=== PATIENT | female | born 1950 | race Caucasian/White ===

== ENCOUNTER → 2023-10-21 13:46 | Outpatient (REF) | payer MEDICARE, BC, SELFPAY ==
[2023-10-21 14:31] LABS: ALT (SGPT) 25 U/L (0-35); AST (SGOT) 22 U/L (14-36); Alkaline Phosphatase 76 U/L (38-126); Blood Urea Nitrogen 17 mg/dl (7-17); Calcium 9.4 mg/dl (8.4-10.2); Carbon Dioxide 28 mmol/L (22-30); Chloride 106 mmol/L (98-107); Glucose 142 mg/dl (70-99); HDL Cholesterol 82 mg/dl; LDL Cholesterol, Calculated 69 mg/dl; Sodium 139 mmol/L (135-145); Total Bilirubin 0.5 mg/dl (0.2-1.3); Total Cholesterol 168 mg/dl (50-199); Total Protein 6.4 g/dl (6.3-8.2); Triglyceride 86 mg/dl (10-149); Very Low Density Lipoprotein 17 mg/dl (0-30); eGFR > 60.00
== END ==
LOC: REG 13:46
PROVIDERS: ATTENDING PHYSICIAN Family Medicine
DX: E11.69 Type 2 diabetes mellitus with other specified complication (principal); I10 Essential (primary) hypertension
CPT/HCPCS: 36415; 80053; 80061; 83036

== ENCOUNTER → 2023-12-16 12:18 | Outpatient (REF) | payer MEDICARE, BC, SELFPAY ==
[2023-12-16 14:09] LABS: % Basophils 0.2 % (0-2); % Eosinophils 0.6 % (0-6); % Immature Granulocytes 0.2 % (0-0.5); % Lymphocytes 27.2 % (20.5-51.1); % Neutrophils 64.8 % (42.2-75.2); Absolute Lymphocytes 1.3 10^3/uL (1.2-3.4); Absolute Monocytes 0.3 10^3/uL (0.1-0.6); Absolute Neutrophils 3.1 10^3/uL (1.4-6.5); Hematocrit 43.1 % (37.0-47.0); Hemoglobin 14.5 g/dL (12.0-16.0); Mean Corp Hgb Conc. 33.6 g/dL (33.0-37.0); Mean Corpuscular Hgb 31.9 pg (27.0-31.0); Mean Corpuscular Volume 94.9 fL (81.0-99.0); Mean Platelet Volume 9.6 fL (7.4-10.4); Nucleated Red Blood Cells % 0 %; Platelet Count 210 10^3/uL (130-400); Red Blood Cell Count 4.54 10^6/uL (4.20-5.40); Red Cell Dist. Width 13.2 % (11.5-14.5); White Blood Cell Count 4.9 10^3/uL (4.8-10.8)
[2023-12-16 14:25] LABS: Glycohemoglobin (HgbA1c) 7.9 % (4.0-5.6)
[2023-12-16 14:29] LABS: ALT (SGPT) 33 U/L (0-35); AST (SGOT) 29 U/L (14-36); Albumin 4.3 g/dl (3.5-5.0); Alkaline Phosphatase 81 U/L (38-126); Blood Urea Nitrogen 24 mg/dl (7-17); Calcium 9.5 mg/dl (8.4-10.2); Carbon Dioxide 26 mmol/L (22-30); Chloride 104 mmol/L (98-107); Glucose 172 mg/dl (70-99); HDL Cholesterol 93 mg/dl; LDL Cholesterol, Calculated 83 mg/dl; Potassium 3.8 mmol/L (3.5-5.1); Sodium 138 mmol/L (135-145); Total Bilirubin 0.4 mg/dl (0.2-1.3); Total Cholesterol 200 mg/dl (50-199); Total Protein 6.8 g/dl (6.3-8.2); Triglyceride 123 mg/dl (10-149); Very Low Density Lipoprotein 24 mg/dl (0-30); eGFR > 60.00
[2023-12-16 14:57] LABS: TSH Reflex To Free T4 2.55 uIU/ml (0.47-4.68)
== END ==
LOC: REG 12:18
PROVIDERS: ATTENDING PHYSICIAN Family Medicine
DX: E11.69 Type 2 diabetes mellitus with other specified complication (principal); E78.00 Pure hypercholesterolemia, unspecified; Z13.29 Encounter for screening for other suspected endocrine disorder; R53.83 Other fatigue
CPT/HCPCS: 36415; 80053; 80061; 83036; 84443; 85025

== ENCOUNTER 2024-02-04 07:23 | Emergency (ER) | payer MEDICARE, BC, SELFPAY ==
[2024-02-04 07:26] VITALS: BP 152/75
--- NOTE | 2024-02-04 10:22 | ED.GENMED ---
History of Present Illness
General
Chief Complaint: Musculo-Skeletal Complaint
Source: patient
Time Seen by Provider: 02/04/24 07:33
Travel History
Have you had any contact with someone who has COVID-19?: No
Do you have any symptoms of coronavirus? Fever > 100 degrees, chills, cough, shortness of breath, sore throat, loss of taste or smell, muscle aches, or headache?: No
History of Present Illness
History of Present Illness:
73-year-old female presents with 1 week of left arm pain. Patient states that she is not sure if she injured it but thinks maybe she bumped her arm in the middle of the night. She states that she takes antipsychotics and sometimes she does not
recall. She states that it hurts in the similar site to when she broke it in the past. The patient admits that it started 1 week ago and has been constant. Denies chest pain or shortness of breath. No palpitations. No neck pain. No radiation
down into the forearm. The pain is at the distal one third of her humerus region.
Past History
Past History
ED Past Medical History: Hypercholesterolemia, NIDDM, Psychiatric (Bipolar), Other (left arm michael and screws 2008 and then again 2009 with bone growth stimulator) and Other (L renal art. aneurism, bipolar)
ED Past Surgical History: Orthopedic
Patient has exhibited threatening behavior?: No
Social History
Tobacco: Non-smoker
Alcohol: Chronic alcoholic (states she quit ETOH 03/2016)
Drug: None
Personal:
Living: alone
Employment: Disabled
Family History
Family History: Hypertension
Phy Exam
Physical Exam
Physical Exam:
CONSTITUTIONAL Vital signs reviewed, Patient alert and oriented to person, place and time. Well-appearing
HEAD atraumatic, normocephalic.
EYES eyelids normal to inspection, Extraocular muscles intact, Conjunctiva normal, Sclera normal.
NECK normal range of motion, Trachea midline, no jugular venous distention.
RESP no respiratory distress
BACK No obvious deformities
UPPER EXTREMITY Gross Range of motion normal, gross motor strength normal. Mild tenderness at the distal humerus on the left.
LOWER EXTREMITY Gross range of motion normal, Gross motor strength normal
NEURO Speech normal, No focal motor deficits include, Burton coma scale 15, Memory normal, Cranial Nerves intact to screening exam.
SKIN Skin warm, dry, and normal in color.
PSYCHIATRIC Patient oriented to person place and time, Normal affect.
Course
Orders/Labs/Results
Orders:
Orders
02/04/24 07:56
Humerus, Left 2 Views [CR Humerus - Left Min 2 Views*] Urgent
Comment:
Reason For Exam: pain, possible injury
02/04/24 10:23
Electrocardiogram (*1) Urgent
Reason for Study: Other
Other Reason for Exam: LUE pain
EKG- Treatment ONCE
Vital Signs
Initial and Last Documented VS:
Initial Vital Signs
Temp Pulse Resp BP Pulse Ox
98.0 F 89 16 152/75 96
02/04/24 07:26 02/04/24 07:26 02/04/24 07:26 02/04/24 07:26 02/04/24 07:26
Last Documented Vital Signs
Temp Pulse Resp BP Pulse Ox
98.0 F 89 16 152/75 96
02/04/24 07:26 02/04/24 07:26 02/04/24 07:26 02/04/24 07:26 02/04/24 07:26
MDM/Problems Addressed
MDM/Problems Addressed:
Arm pain
*Radiology
Radiology exam reviewed: all reviewed NAD by ED Provider
*Pulse Oximetry
Patient hypoxic: no
*EKG
Interpreted by ED Provider?: Yes
Interpretation: normal
Rate: normal
Rhythm: sinus
Dorado: normal axis
QRS Pattern: normal QRS
Ischemia: no ischemia
*Critical Care Note
Total Time (30-74mins, 75-104mins- exclusive of procedures): Not Applicable
Data Reviewed
Source: patient
Further Testing Considered But Not Given:
Consider troponin patient states that hurts with movement. Check EKG
Patient Management
Escalation/DeEscalation of care consider admission/obs:
Patient stable for outpatient follow-up. Await EKG. If negative okay for discharge
ED Attending Note
-
Portions of this chart may have been created with voice recognition software.� Occasional wrong word or��sound alike� substitutions may have occurred due to the inherent limitations of voice recognition software.
Discharge Plan
Departure
Patient Disposition: Home (Routine Discharge)
Date of Disposition: 02/04/24
Time of Disposition: 10:22
Patient with high blood pressure during this ER visit?: Yes
Discharge Problem:
Arm pain
Instructions: Contusion (DC)
Prescriptions:
No Action
atorvastatin 40 MG tablet
40 mg PO DAILY
divalproex 250 MG tablet,delayed release (DR/EC)
750 mg PO HS
metoprolol succinate 100 MG tablet extended release 24 hr
100 mg PO DAILY
risperidone 2 MG tablet
4 mg PO HS
calcium carbonate 600 MG tablet
600 mg PO DAILY
sertraline 50 MG tablet
50 mg PO DAILY
melatonin 5 MG tablet
5 mg PO HS
multivitamin with folic acid [Tab-A-Mary] 1 TABLET tablet
1 tab PO DAILY
oxycodone 5 MG tablet
5 mg PO Q4HPRN PRN (Reason: PAIN) Qty: 10 0RF
clonazepam 0.5 MG tablet
0.25 mg PO HS Qty: 7 0RF
thiamine HCl (vitamin B1) 100 MG tablet
100 mg PO DAILY Qty: 30 0RF
metformin 500 MG tablet
500 mg PO BID Qty: 60 0RF
Rx Instructions:
1/2 hr before meals
molnupiravir 200 mg capsule
800 mg PO Q12H 5 Days Qty: 40 0RF
Referrals:
Ricardo Washington Jr., DO [Family Provider] -
Activity Restrictions/Additional Instructions:
Please ice your injury and see your doctor in the next 1 week for follow-up and reevaluation. Return admitted for chest pain, shortness of breath, palpitations, weakness of any kind or any other concerns
Interventions
Interventions:
*Risk Screen - Suicide Last Done: 02/04/24 08:11
*General Assessment Last Done: 02/04/24 08:11
*ED COVID-19 Vaccine History Last Done: 02/04/24 07:26
ED-Musculoskeletal Assessment Last Done: 02/04/24 09:10
Discharge Date and Time
Print Language: MAORI
== END 2024-02-04 10:51 | disposition home or self-care (01) ==
LOC: EMR 07:23
PROVIDERS: EMERGENCY PHYSICIAN Emergency Medicine; FAMILY PHYSICIAN Family Medicine
DX: M79.602 Pain in left arm (principal); E11.9 Type 2 diabetes mellitus without complications; Z79.84 Long term (current) use of oral hypoglycemic drugs; E78.00 Pure hypercholesterolemia, unspecified
CPT/HCPCS: 99283; 73060; 93005

== ENCOUNTER 2024-02-04 16:40 | Emergency (ER) | payer SELFPAY ==
[2024-02-04 17:05] VITALS: BP 149/73
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
[2024-02-04] MEDS: TYLENOL 1000 MG PO (18:44)
== END 2024-02-04 20:47 | disposition home or self-care (01) ==
LOC: EMR 16:40
PROVIDERS: EMERGENCY PHYSICIAN Emergency Medicine; FAMILY PHYSICIAN Family Medicine
DX: S42.91XA Fracture of right shoulder girdle, part unspecified, initial encounter for closed fracture (principal); V43.52XA Car driver injured in collision with other type car in traffic accident, initial encounter; Y92.410 Unspecified street and highway as the place of occurrence of the external cause; R07.89 Other chest pain; M25.511 Pain in right shoulder
CPT/HCPCS: 99284; 73030; 93005

== ENCOUNTER → 2024-02-12 14:24 | Outpatient (REF) | payer MEDICARE, BC, SELFPAY | LOC: HWRAD 14:24 | PROVIDERS: ATTENDING PHYSICIAN Physician Assistant; FAMILY PHYSICIAN Family Medicine | DX: S42.291A Other displaced fracture of upper end of right humerus, initial encounter for closed fracture (principal) | CPT/HCPCS: 73200 ==

== ENCOUNTER → 2024-02-16 11:10 | Outpatient (REF) | payer MEDICARE, BC, SELFPAY | LOC: HWCARD 11:10 | PROVIDERS: ATTENDING PHYSICIAN Orthopaedic Surgery Hand Surgery; FAMILY PHYSICIAN Family Medicine | DX: Z01.818 Encounter for other preprocedural examination (principal) | CPT/HCPCS: 93005 ==

== ENCOUNTER 2024-02-17 06:03 | Inpatient (IN) | payer OTHER, MEDICARE, BC, SELFPAY ==
--- NOTE | 2024-02-15 16:34 | PTCARENOTE ---
Abn HgA1c, Christian at MD office made aware.
--- NOTE | 2024-02-16 14:23 | CM ---
Attempted to call patient but went to voicemail. COuld not leave message as voice mail full. SPoke to sister in law who said she and her are reaching out to patient to get her to return call to [facility].
[2024-02-17] VITALS (18 sets, daily range): BP systolic 113–159; BP diastolic 52–87; PULSE 86–96; O2SAT 94–96; BMI 22.3
[2024-02-17 07:00] LABS: Glucose - Point of Care 214 mg/dl (70-99)
[2024-02-17] MEDS: CELEBREX 200 MG PO (07:22)
[2024-02-17] MEDS: TYLENOL 1000 MG PO (07:22)
[2024-02-17] MEDS: BACTROBAN NASAL 1 GRAM NASAL (07:22)
[2024-02-17] MEDS: NORMOSOL-R 1000 IV ×2 (07:23→11:30)
--- NOTE | 2024-02-17 10:00 | SUR.PHASEI ---
Received report from Bob Lisa RN and assumed care of pt
[2024-02-17 10:09] LABS: Glucose - Point of Care 238 mg/dl (70-99)
[2024-02-17] MEDS: NOVOLOG vial 1 UNITS SC (10:45)
[2024-02-17] MEDS: LANTUS 0.0800000000000000017 UNITS SC (10:49)
[2024-02-17 12:28] LABS: Glucose - Point of Care 223 mg/dl (70-99)
--- NOTE | 2024-02-17 12:42 | CM ---
Patient arrived on floor. Request for CM consult for discharge planning and possible HH/VN. Will await therapy recommendations.
--- NOTE | 2024-02-17 12:50 | PTCARENOTE ---
1225: Patient arrived to 2S. Full head to toe assessment completed. R upper extremity neurovascular assessment completed. R arm on sling. IVF running per order. Call pro within reach and bed in lowest position.
[2024-02-17] MEDS: TORADOL IV (13:07)
[2024-02-17] MEDS: ZOLOFT 50 MG PO (13:09)
[2024-02-17] MEDS: TYLENOL 650 MG PO ×3 (13:09→21:20)
[2024-02-17] MEDS: NOVOLOG FLEXPEN-MODERATE RESISTANCE 3 UNITS SC (13:22)
[2024-02-17] MEDS: ACTOS 45 MG PO (13:23)
--- NOTE | 2024-02-17 14:48 | CM ---
Patient is scheduled for an elective R Reverse TSA on 02/17/24. UNable to speak to patient prior to surgery. MEt in room today. Introduced role of Orthopedic Navigator. Patient reports that she lives alone in a two story home with 3 steps to enter.
Set up on first floor with full bathroom with tub. She was functioning independently but had friends helping give her rides and making food.
She is right dominant. She has been using a sling but was using both hands to open cat food. SHe has tub seat and grab bar by tub. SHe has comfort height toilet seats.
PCP is Dr. Shannan Fisher
Discussed orthopedic program and post surgical plans. Reviewed anticipated length of stay. Patient feels she will need snf rehab as she does not have anyone to come stay with her. Will await OT evaluation to see who she functions. will ask for PT
eval for SNF needs.
Plan: Orthopedic Navigator will be involved in the care of patient.
[2024-02-17] MEDS: ANCEF 5 IV (16:11)
[2024-02-17 16:58] LABS: Glucose - Point of Care 295 mg/dl (70-99)
[2024-02-17] MEDS: NOVOLOG FLEXPEN-MODERATE RESISTANCE 5 UNITS SC (17:25)
[2024-02-17] MEDS: ASPIRIN 325 MG PO (17:26)
[2024-02-17 21:12] LABS: Glucose - Point of Care 281 mg/dl (70-99)
[2024-02-17] MEDS: RISPERDAL 2 MG PO (21:20)
[2024-02-17] MEDS: COLACE 100 MG PO (21:20)
[2024-02-17] MEDS: LIPITOR 40 MG PO (21:20)
[2024-02-17] MEDS: DEPAKOTE ER (24 HR RELEASE) 750 MG PO (21:20)
[2024-02-17] MEDS: SENOKOT 17.1999999999999993 MG PO (21:20)
[2024-02-17] MEDS: RISPERDAL 0.5 MG PO (21:20)
[2024-02-17] MEDS: TORADOL 15 MG IV (21:21)
[2024-02-17] MEDS: TOPROL XL 25 MG PO (21:21)
[2024-02-17] MEDS: BACTROBAN 2% OINTMENT 1 APPLIC NASAL (21:21)
[2024-02-17] MEDS: DESYREL 25 MG PO (21:23)
[2024-02-18] VITALS (7 sets, daily range): BP systolic 96–146; BP diastolic 44–58; PULSE 79–81; O2SAT 100
[2024-02-18] MEDS: ANCEF 5 IV (00:28)
[2024-02-18] MEDS: TYLENOL PO (00:42)
[2024-02-18] MEDS: TYLENOL 650 MG PO ×5 (03:53→19:52)
[2024-02-18 07:16] LABS: Glucose - Point of Care 186 mg/dl (70-99)
--- NOTE | 2024-02-18 07:19 | W.PN.ORTHO ---
Today's Communication / Plan
-
PT/OT
Nonweightbearing right upper extremity
Aspirin for DVT prophylactics
group home facility when bed available
Assessment
.
Distal Motor Intact: Yes
Dressing:
Clean, dry and intact.
Plan
.
Surgery / Date: R reverse TSA 02/16 Ritting
DVT Prophylaxis: Aspirin
Activity:
Out of bed.
PT/OT
Discharge Plan: SNF
Subjective
.
.:
Patient resting comfortably.
Vital Signs and Labs
.
Vital Signs and Labs:
Temp Pulse Resp BP Pulse Ox
98.5 F 91 18 121/58 97
02/18/24 03:25 02/18/24 03:25 02/18/24 03:25 02/18/24 03:25 02/18/24 03:25
Non-invasive Hgb result: 10.1
[2024-02-18] MEDS: NOVOLOG FLEXPEN-MODERATE RESISTANCE 1 UNITS SC ×2 (08:09→12:45)
[2024-02-18] MEDS: SENOKOT 17.1999999999999993 MG PO ×2 (08:10→19:52)
[2024-02-18] MEDS: ACTOS 45 MG PO (08:10)
[2024-02-18] MEDS: COLACE 100 MG PO ×2 (08:10→19:52)
[2024-02-18] MEDS: LANTUS 0.0800000000000000017 UNITS SC (08:10)
[2024-02-18] MEDS: ASPIRIN 325 MG PO (08:10)
[2024-02-18] MEDS: ZOLOFT 50 MG PO (08:10)
[2024-02-18] MEDS: TORADOL 15 MG IV (08:11)
[2024-02-18] MEDS: BACTROBAN 2% OINTMENT 1 APPLIC NASAL ×2 (08:12→19:52)
--- NOTE | 2024-02-18 10:03 | W.PN.ORTHO ---
Today's Communication / Plan
-
d/c when stable
Assessment
.
Distal Motor Intact: Yes
Dressing:
Clean, dry and intact.
Assessment:
Hypotension--Midrdrine + IVF
DM-sugars stable today
Plan
.
Surgery / Date: Prox humerus Fx-R reverse TSA 02/16 Ritting
DVT Prophylaxis: Aspirin
Activity:
Out of bed.
PT/OT
Discharge Plan: SNF
Subjective
.
.:
Patient resting comfortably.
Vital Signs and Labs
.
Vital Signs and Labs:
Temp Pulse Resp BP Pulse Ox
97.5 F 78 18 96/52 94
02/18/24 07:10 02/18/24 07:10 02/18/24 07:10 02/18/24 07:10 02/18/24 07:10
Non-invasive Hgb result: 10.1
Physical Exam
-
HEENT: No pallor, cyanosis, or jaundice. Throat clear.
NECK: Supple. No JVD.
RESPIRATORY: Lungs clear to auscultation.
CVS: S1, S2 normal. RRR.� No murmur, rub or gallop.
ABDOMEN: Soft, non-tender. No distension. BS+/normal.
EXTREMITIES: strength equal, no calf pain with palpation
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 No focal deficits. 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
--- NOTE | 2024-02-18 10:13 | W.DS.TRANS ---
DC Summary - Medical Authorization Specialist
-
Discharge Instructions:
Sleep Apnea Risk Intermediate
Discharge Diagnosis/Procedures R proximal humerus fx-s/p R reverse TSA
Ritting 02/17/24
Diet Diabetic, Carb Controlled
Activity No strenuous activity
Additional Activity NWB w/ sling RUE
Driving Restrictions No driving
Instructions:
Stand-Alone Forms: Total Shoulder Replacement D/C
Changes to Home Medications: Yes
Discharge Medications:
DC Medications w/original date entered in [facility]
atorvastatin 40 mg tablet 40 mg PO HS 05/01/16
sertraline 50 mg tablet 50 mg PO DAILY 05/01/16
metoprolol succinate 50 mg capsule sprinkle, ext. release 24 hr 50 mg PO HS 02/16/24
pioglitazone 45 mg tablet 45 mg PO DAILY 02/16/24
risperidone 0.5 mg tablet (Risperdal) 0.5 mg PO HS 02/16/24
risperidone 2 mg tablet (Risperdal) 2 mg PO HS 02/16/24
semaglutide 14 mg tablet (Rybelsus) 14 mg PO DAILY 02/16/24
trazodone 50 mg tablet 25 mg PO HS PRN insomnia 02/16/24
divalproex 250 mg tablet,extended release 24 hr (Depakote ER) 750 mg PO HS Mental Health/Anxiety 02/17/24
Saccharomyces boulardii 250 mg capsule (Florastor) 250 mg PO BID #1 cap 02/18/24
acetaminophen 500 mg tablet 1,000 mg (2 x 500 mg) PO QID #0 tabs 02/18/24
aspirin 325 mg tablet 325 mg PO DAILY blood clot prevention #1 tab 02/18/24
docusate sodium 100 mg capsule (Colace) 100 mg PO BID stool softner #1 cap 02/18/24
doxycycline hyclate 100 mg capsule 100 mg PO BID infection prevention #10 caps 02/18/24
famotidine 20 mg tablet 20 mg PO HS GI prophylaxis #30 tabs 02/18/24
gabapentin 300 mg capsule 300 mg PO HS sleep/pain #10 caps 02/18/24
magnesium hydroxide 400 mg/5 mL oral suspension (Milk of Magnesia) 30 ml PO HS PRN Constipation #1 mL 02/18/24
meloxicam 15 mg tablet 15 mg PO DAILY anti-inflammatory #14 tabs 02/18/24
oxycodone 5 mg tablet 5 mg PO Q6H PRN 1 tab moderate pain, 2 tabs severe pain #30 tabs 02/18/24
sennosides 8.6 mg tablet (Senokot) 17.2 mg (2 x 8.6 mg) PO BID laxative #2 tabs 02/18/24
Home Medication Changes
doxycycline hyclate 100 mg capsule 100 mg PO BID infection prevention #10 caps 02/18/24
famotidine 20 mg tablet 20 mg PO HS GI prophylaxis #30 tabs 02/18/24
gabapentin 300 mg capsule 300 mg PO HS sleep/pain #10 caps 02/18/24
meloxicam 15 mg tablet 15 mg PO DAILY anti-inflammatory #14 tabs 02/18/24
oxycodone 5 mg tablet 5 mg PO Q6H PRN 1 tab moderate pain, 2 tabs severe pain #30 tabs 02/18/24
Pending Results: No
[2024-02-18] MEDS: ProAmatine 5 MG PO ×3 (10:20→17:27)
[2024-02-18] MEDS: NSS 250 IV (10:20)
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
[2024-02-18 12:16] LABS: Glucose - Point of Care 192 mg/dl (70-99)
[2024-02-18] MEDS: ROXICODONE 10 MG PO (16:01)
[2024-02-18 16:25] LABS: Glucose - Point of Care 255 mg/dl (70-99)
[2024-02-18] MEDS: NOVOLOG FLEXPEN-MODERATE RESISTANCE 5 UNITS SC (17:24)
[2024-02-18 21:35] LABS: Glucose - Point of Care 201 mg/dl (70-99)
[2024-02-18] MEDS: ZOFRAN 4 MG IV (22:02)
[2024-02-18] MEDS: DEPAKOTE ER (24 HR RELEASE) 750 MG PO (22:07)
[2024-02-18] MEDS: DESYREL 25 MG PO (22:07)
[2024-02-18] MEDS: RISPERDAL 0.5 MG PO (22:07)
[2024-02-18] MEDS: LIPITOR 40 MG PO (22:07)
[2024-02-18] MEDS: RISPERDAL 2 MG PO (22:07)
[2024-02-18] MEDS: TOPROL XL 25 MG PO (22:08)
[2024-02-19] MEDS: TYLENOL PO (01:00)
[2024-02-19] MEDS: TYLENOL 650 MG PO ×5 (03:36→19:37)
[2024-02-19 07:46] LABS: Glucose - Point of Care 186 mg/dl (70-99)
[2024-02-19 07:48] VITALS: BP 117/56
[2024-02-19] MEDS: ASPIRIN 325 MG PO (08:35)
[2024-02-19] MEDS: ZOLOFT 50 MG PO (08:35)
[2024-02-19] MEDS: ACTOS 45 MG PO (08:35)
[2024-02-19] MEDS: SENOKOT 17.1999999999999993 MG PO ×2 (08:35→19:37)
[2024-02-19] MEDS: ProAmatine 5 MG PO ×3 (08:35→17:36)
[2024-02-19] MEDS: NOVOLOG FLEXPEN-MODERATE RESISTANCE 1 UNITS SC ×2 (08:36→17:36)
[2024-02-19] MEDS: LANTUS 0.0800000000000000017 UNITS SC (08:36)
[2024-02-19] MEDS: COLACE 100 MG PO ×2 (08:36→19:37)
--- NOTE | 2024-02-19 10:53 | W.PN.ORTHO ---
Today's Communication / Plan
-
D/C when stable
Assessment
.
Distal Motor Intact: Yes
Dressing:
Clean, dry and intact.
Assessment:
Hypotension--Midrdrine + IVF-RESOLVED
DM-sugars stable
Plan
.
Surgery / Date: Prox humerus Fx-R reverse TSA 02/16 Ritting
DVT Prophylaxis: Aspirin
Activity:
Out of bed.
PT/OT
Discharge Plan: SNF
Subjective
.
.:
Patient resting comfortably.
Vital Signs and Labs
.
Vital Signs and Labs:
Temp Pulse Resp BP Pulse Ox
98.4 F 80 16 117/56 94
02/19/24 07:48 02/19/24 07:48 02/19/24 07:48 02/19/24 08:35 02/19/24 07:48
Non-invasive Hgb result: 10.6
Physical Exam
-
HEENT: No pallor, cyanosis, or jaundice. Throat clear.
NECK: Supple. No JVD.
RESPIRATORY: Lungs clear to auscultation.
CVS: S1, S2 normal. RRR.� No murmur, rub or gallop.
ABDOMEN: Soft, non-tender. No distension. BS+/normal.
EXTREMITIES: strength equal, no calf pain with palpation
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 No focal deficits. senior architect grossly intact
[2024-02-19 11:46] LABS: Glucose - Point of Care 277 mg/dl (70-99)
[2024-02-19] MEDS: NOVOLOG FLEXPEN-MODERATE RESISTANCE 5 UNITS SC (12:06)
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
[2024-02-19 15:30] VITALS: BP 117/66; PULSE 87
[2024-02-19 15:37] VITALS: BP 117/66
[2024-02-19 16:45] VITALS: BP 132/65; PULSE 93; O2SAT 96
[2024-02-19 16:47] LABS: Glucose - Point of Care 178 mg/dl (70-99)
[2024-02-19] MEDS: MILK OF MAGNESIA 30 ML PO (19:41)
[2024-02-19] MEDS: LIPITOR 40 MG PO (21:27)
[2024-02-19] MEDS: RISPERDAL 0.5 MG PO (21:27)
[2024-02-19] MEDS: DEPAKOTE ER (24 HR RELEASE) 750 MG PO (21:27)
[2024-02-19] MEDS: DESYREL 25 MG PO (21:28)
[2024-02-19] MEDS: RISPERDAL 2 MG PO (21:28)
[2024-02-19] MEDS: TOPROL XL 25 MG PO (21:29)
[2024-02-19 21:30] LABS: Glucose - Point of Care 251 mg/dl (70-99)
[2024-02-19 23:14] VITALS: BP 142/61
[2024-02-20] MEDS: TYLENOL PO ×2 (01:04→04:58)
[2024-02-20 08:03] LABS: Glucose - Point of Care 185 mg/dl (70-99)
--- NOTE | 2024-02-20 08:14 | W.PN.UPDATE ---
Update Note
Progress Note Update
Ms. Ferrara is POD3 following her right reverse shoulder replacement for proximal humerus fracture performed by Dr. Magallon. She is resting comfortably in bed this morning, and reports any pain in her shoulder is well controlled at present. She is
scheduled for dc to [facility] this afternoon.
Surgical dressing clean, dry and intact. Expected post-operative edema and ecchymosis. Patient able to wiggle fingers, flex and extend wrist. Sensation intact to light touch distally. Capillary refill <2 seconds.
We will see patient back at 2 weeks post-op. Dc orders in.
[2024-02-20 08:17] VITALS: BP 133/73
[2024-02-20] MEDS: NOVOLOG FLEXPEN-MODERATE RESISTANCE 1 UNITS SC (08:27)
[2024-02-20] MEDS: LANTUS 0.0800000000000000017 UNITS SC (08:28)
[2024-02-20] MEDS: ACTOS 45 MG PO (08:28)
[2024-02-20] MEDS: SENOKOT 17.1999999999999993 MG PO (08:28)
[2024-02-20] MEDS: ProAmatine PO (08:29)
[2024-02-20] MEDS: TYLENOL 650 MG PO ×2 (08:29→12:22)
[2024-02-20] MEDS: ASPIRIN 325 MG PO (08:29)
[2024-02-20] MEDS: COLACE 100 MG PO (08:29)
[2024-02-20] MEDS: ZOLOFT 50 MG PO (08:29)
[2024-02-20 09:40] VITALS: BP 126/66
[2024-02-20 12:17] LABS: Glucose - Point of Care 287 mg/dl (70-99)
[2024-02-20 12:22] VITALS: BP 127/72
[2024-02-20] MEDS: NOVOLOG FLEXPEN-MODERATE RESISTANCE 5 UNITS SC (12:22)
[2024-02-20] MEDS: ProAmatine 5 MG PO (12:23)
--- NOTE | 2024-02-20 12:59 | CM ---
Patient has been medically cleared for discharge to [facility]. Transport scheduled for 2:00PM.
== END 2024-02-20 12:47 | DRG 483 ==
LOC: 2 SOUTH 06:03
PROVIDERS: ADMITTING PHYSICIAN Orthopaedic Surgery Hand Surgery
PROC: 0RRJ0JZ Replacement of Right Shoulder Joint with Synthetic Substitute, Open Approach (ICD-10-PCS; 2024-02-17)
DX: S42.201A Unspecified fracture of upper end of right humerus, initial encounter for closed fracture (principal); I95.81 Postprocedural hypotension; E11.9 Type 2 diabetes mellitus without complications
CPT/HCPCS: 73020; 82962; 87070; 93005; 97110; 97116; 97162; 97166; 97530; 97535; C1713; C1776

== ENCOUNTER → 2024-02-23 10:27 | Outpatient (REF) | payer OTHER, SELFPAY ==
[2024-02-23 11:02] LABS: Hematocrit 30.4 % (37.0-47.0); Hemoglobin 10.1 g/dL (12.0-16.0); Mean Corp Hgb Conc. 33.2 g/dL (33.0-37.0); Mean Corpuscular Hgb 31.9 pg (27.0-31.0); Mean Corpuscular Volume 95.9 fL (81.0-99.0); Mean Platelet Volume 9.1 fL (7.4-10.4); Platelet Count 279 10^3/uL (130-400); Red Blood Cell Count 3.17 10^6/uL (4.20-5.40); Red Cell Dist. Width 13.1 % (11.5-14.5); White Blood Cell Count 4.1 10^3/uL (4.8-10.8)
[2024-02-23 11:17] LABS: Blood Urea Nitrogen 21 mg/dl (7-17); Carbon Dioxide 28 mmol/L (22-30); Chloride 105 mmol/L (98-107); Glucose 160 mg/dl (70-99); Potassium 4.2 mmol/L (3.5-5.1); Sodium 138 mmol/L (135-145); eGFR > 60.00
== END ==
LOC: OLABP 10:27
PROVIDERS: ATTENDING PHYSICIAN Family Medicine
DX: S42.201A Unspecified fracture of upper end of right humerus, initial encounter for closed fracture (principal); M25.50 Pain in unspecified joint; R26.2 Difficulty in walking, not elsewhere classified; I10 Essential (primary) hypertension; E78.00 Pure hypercholesterolemia, unspecified; I72.2 Aneurysm of renal artery; E11.9 Type 2 diabetes mellitus without complications; D12.6 Benign neoplasm of colon, unspecified; F31.9 Bipolar disorder, unspecified; M85.89 Other specified disorders of bone density and structure, multiple sites
CPT/HCPCS: 36415; 80048; 85027

== ENCOUNTER → 2024-03-02 12:09 | Outpatient (REF) | payer OTHER, MEDICARE, SELFPAY ==
[2024-03-02 13:03] LABS: % Basophils 0.2 % (0-2); % Monocytes 17.8 % (1.7-9.3); Absolute Lymphocytes 0.8 10^3/uL (1.2-3.4); Absolute Monocytes 0.7 10^3/uL (0.1-0.6); Absolute Neutrophils 2.5 10^3/uL (1.4-6.5); Hematocrit 31.6 % (37.0-47.0); Hemoglobin 10.1 g/dL (12.0-16.0); Mean Corpuscular Hgb 31.8 pg (27.0-31.0); Mean Corpuscular Volume 99.4 fL (81.0-99.0); Mean Platelet Volume 9.5 fL (7.4-10.4); Nucleated Red Blood Cells % 0 %; Platelet Count 180 10^3/uL (130-400); Red Blood Cell Count 3.18 10^6/uL (4.20-5.40); Red Cell Dist. Width 14.1 % (11.5-14.5); White Blood Cell Count 4.1 10^3/uL (4.8-10.8)
[2024-03-02 13:12] LABS: ALT (SGPT) 28 U/L (0-35); AST (SGOT) 24 U/L (14-36); Albumin 2.9 g/dl (3.5-5.0); Alkaline Phosphatase 155 U/L (38-126); Blood Urea Nitrogen 13 mg/dl (7-17); Calcium 8.8 mg/dl (8.4-10.2); Carbon Dioxide 29 mmol/L (22-30); Chloride 102 mmol/L (98-107); Glucose 136 mg/dl (70-99); Potassium 4.2 mmol/L (3.5-5.1); Sodium 135 mmol/L (135-145); Total Bilirubin 0.3 mg/dl (0.2-1.3); Total Protein 4.9 g/dl (6.3-8.2); eGFR > 60.00
== END ==
LOC: OLABP 12:09
PROVIDERS: ATTENDING PHYSICIAN Family Medicine
DX: M25.50 Pain in unspecified joint (principal); R26.2 Difficulty in walking, not elsewhere classified; I10 Essential (primary) hypertension; E78.00 Pure hypercholesterolemia, unspecified; I72.2 Aneurysm of renal artery; E11.9 Type 2 diabetes mellitus without complications; D12.6 Benign neoplasm of colon, unspecified; F31.9 Bipolar disorder, unspecified; M85.89 Other specified disorders of bone density and structure, multiple sites
CPT/HCPCS: 36415; 80053; 85025

== ENCOUNTER → 2024-04-29 09:01 | Outpatient (REF) | payer OTHER, MEDICARE, BC, SELFPAY ==
[2024-04-29 10:23] LABS: % Basophils 0.3 % (0-2); % Eosinophils 0.5 % (0-6); % Immature Granulocytes 0.3 % (0-0.5); % Lymphocytes 29.8 % (20.5-51.1); % Monocytes 9.3 % (1.7-9.3); % Neutrophils 59.8 % (42.2-75.2); Absolute Lymphocytes 1.1 10^3/uL (1.2-3.4); Absolute Monocytes 0.3 10^3/uL (0.1-0.6); Absolute Neutrophils 2.2 10^3/uL (1.4-6.5); Mean Corp Hgb Conc. 33.3 g/dL (33.0-37.0); Mean Corpuscular Hgb 31.9 pg (27.0-31.0); Mean Corpuscular Volume 95.6 fL (81.0-99.0); Mean Platelet Volume 9.8 fL (7.4-10.4); Nucleated Red Blood Cells % 0 %; Platelet Count 203 10^3/uL (130-400); Red Blood Cell Count 4.08 10^6/uL (4.20-5.40); Red Cell Dist. Width 13.4 % (11.5-14.5); White Blood Cell Count 3.7 10^3/uL (4.8-10.8)
[2024-04-29 10:47] LABS: Glycohemoglobin (HgbA1c) 7.9 % (4.0-5.6)
[2024-04-29 10:48] LABS: ALT (SGPT) 15 U/L (0-35); AST (SGOT) 21 U/L (14-36); Albumin 4.1 g/dl (3.5-5.0); Alkaline Phosphatase 89 U/L (38-126); Blood Urea Nitrogen 22 mg/dl (7-17); Carbon Dioxide 31 mmol/L (22-30); Chloride 99 mmol/L (98-107); Glucose 192 mg/dl (70-99); HDL Cholesterol 80 mg/dl; LDL Cholesterol, Calculated 76 mg/dl; Potassium 4.7 mmol/L (3.5-5.1); Sodium 139 mmol/L (135-145); Total Bilirubin 0.3 mg/dl (0.2-1.3); Total Cholesterol 175 mg/dl (50-199); Total Protein 6.2 g/dl (6.3-8.2); Triglyceride 96 mg/dl (10-149); Very Low Density Lipoprotein 19 mg/dl (0-30); eGFR > 60.00
[2024-04-29 10:50] LABS: Depakane 70.5 ug/ml (50.0-120.0)
[2024-04-29 11:26] LABS: TSH Reflex To Free T4 2.52 uIU/ml (0.47-4.68)
== END ==
LOC: REG 09:01
PROVIDERS: ATTENDING PHYSICIAN Psychiatry & Neurology Psychiatry; FAMILY PHYSICIAN Family Medicine
DX: Z79.899 Other long term (current) drug therapy (principal); E11.69 Type 2 diabetes mellitus with other specified complication; E78.00 Pure hypercholesterolemia, unspecified; Z13.29 Encounter for screening for other suspected endocrine disorder; R53.83 Other fatigue
CPT/HCPCS: 36415; 80053; 80061; 80164; 83036; 84443; 85025

== ENCOUNTER 2024-05-12 12:21 | Outpatient (RCR) | payer OTHER, MEDICARE, BC, SELFPAY | END 2024-05-12 23:59 | disposition home or self-care (01) | LOC: RPT 12:21 | PROVIDERS: ATTENDING PHYSICIAN Orthopaedic Surgery Hand Surgery; FAMILY PHYSICIAN Family Medicine | DX: Z47.1 Aftercare following joint replacement surgery (principal); M25.511 Pain in right shoulder; Z96.611 Presence of right artificial shoulder joint | CPT/HCPCS: 97010; 97110; 97140; 97163 ==

== ENCOUNTER 2024-06-13 12:20 | Outpatient (RCR) | payer OTHER, MEDICARE, BC, SELFPAY | END 2024-06-13 23:59 | disposition home or self-care (01) | LOC: RPT 12:20 | PROVIDERS: ATTENDING PHYSICIAN Orthopaedic Surgery Hand Surgery; FAMILY PHYSICIAN Family Medicine | DX: Z47.1 Aftercare following joint replacement surgery (principal); Z96.611 Presence of right artificial shoulder joint; M25.511 Pain in right shoulder | CPT/HCPCS: 97010; 97110; 97140 ==

== ENCOUNTER 2024-07-01 08:34 | Outpatient (RCR) | payer OTHER, MEDICARE, BC, SELFPAY | END 2024-07-01 10:31 | disposition home or self-care (01) | LOC: RPT 08:34 | PROVIDERS: ATTENDING PHYSICIAN Orthopaedic Surgery Hand Surgery; FAMILY PHYSICIAN Family Medicine | DX: Z47.1 Aftercare following joint replacement surgery (principal); Z73.6 Limitation of activities due to disability; M25.511 Pain in right shoulder; Z96.611 Presence of right artificial shoulder joint | CPT/HCPCS: 97010; 97110; 97140 ==

== ENCOUNTER → 2024-09-21 10:26 | Outpatient (REF) | payer BC, SELFPAY ==
[2024-09-21 11:24] LABS: % Basophils 0.2 % (0-2); % Eosinophils 0.2 % (0-6); % Immature Granulocytes 0.6 % (0-0.5); % Lymphocytes 13.4 % (20.5-51.1); % Monocytes 10.7 % (1.7-9.3); % Neutrophils 74.9 % (42.2-75.2); Absolute Lymphocytes 0.7 10^3/uL (1.2-3.4); Absolute Monocytes 0.5 10^3/uL (0.1-0.6); Absolute Neutrophils 3.8 10^3/uL (1.4-6.5); Hematocrit 45.7 % (37.0-47.0); Hemoglobin 15.9 g/dL (12.0-16.0); Mean Corp Hgb Conc. 34.8 g/dL (33.0-37.0); Mean Corpuscular Hgb 31.8 pg (27.0-31.0); Mean Corpuscular Volume 91.4 fL (81.0-99.0); Mean Platelet Volume 9.4 fL (7.4-10.4); Nucleated Red Blood Cells % 0 %; Platelet Count 202 10^3/uL (130-400); Red Cell Dist. Width 13.2 % (11.5-14.5); White Blood Cell Count 5.1 10^3/uL (4.8-10.8)
[2024-09-21 11:40] LABS: Glycohemoglobin (HgbA1c) 11.9 % (4.0-5.6)
[2024-09-21 11:42] LABS: Depakane 28.9 ug/ml (50.0-120.0)
[2024-09-21 12:10] LABS: ALT (SGPT) 29 U/L (0-35); AST (SGOT) 24 U/L (14-36); Albumin 4.7 g/dl (3.5-5.0); Alkaline Phosphatase 102 U/L (38-126); Blood Urea Nitrogen 14 mg/dl (7-17); Carbon Dioxide 21 mmol/L (22-30); Chloride 93 mmol/L (98-107); Glucose 279 mg/dl (70-99); Potassium 4.6 mmol/L (3.5-5.1); Sodium 132 mmol/L (135-145); Total Bilirubin 0.5 mg/dl (0.2-1.3); Total Cholesterol 244 mg/dl (50-199); Triglyceride 178 mg/dl (10-149); Very Low Density Lipoprotein 35 mg/dl (0-30); eGFR > 60.00
[2024-09-21 12:29] LABS: HDL Cholesterol 132 mg/dl; LDL Cholesterol, Calculated 77 mg/dl
[2024-09-21 13:08] LABS: TSH Reflex To Free T4 4.56 uIU/ml (0.47-4.68)
[2024-09-21 13:25] LABS: Microalbumin, Random Urine 1.3 mg/dl (0.6-1.7)
[2024-09-21 13:27] LABS: Microalbumin/creatinine Ratio 35.3 mg/g
== END ==
LOC: REG 10:26
PROVIDERS: ATTENDING PHYSICIAN Psychiatry & Neurology Psychiatry; FAMILY PHYSICIAN Family Medicine
DX: Z79.899 Other long term (current) drug therapy (principal); R63.4 Abnormal weight loss; Z96.611 Presence of right artificial shoulder joint; R53.83 Other fatigue; E11.69 Type 2 diabetes mellitus with other specified complication; E78.00 Pure hypercholesterolemia, unspecified
CPT/HCPCS: 36415; 80053; 80061; 80164; 82043; 82570; 83036; 84443; 85025

== ENCOUNTER 2024-09-30 15:45 | Inpatient (IN) | payer MEDICARE, BC, SELFPAY ==
[2024-09-30] VITALS (11 sets, daily range): BP systolic 98–128; BP diastolic 52–77; BMI 16.2
[2024-09-30 11:34] LABS: Glucose - Point of Care 291 mg/dl (70-99)
[2024-09-30 11:40] LABS: % Basophils 0.2 % (0-2); % Immature Granulocytes 0.2 % (0-0.5); % Lymphocytes 12.4 % (20.5-51.1); % Monocytes 9.3 % (1.7-9.3); % Neutrophils 77.9 % (42.2-75.2); Absolute Lymphocytes 0.5 10^3/uL (1.2-3.4); Absolute Monocytes 0.4 10^3/uL (0.1-0.6); Absolute Neutrophils 3.3 10^3/uL (1.4-6.5); Hematocrit 41.7 % (37.0-47.0); Hemoglobin 14.7 g/dL (12.0-16.0); Mean Corp Hgb Conc. 35.3 g/dL (33.0-37.0); Mean Corpuscular Hgb 32.5 pg (27.0-31.0); Mean Corpuscular Volume 92.3 fL (81.0-99.0); Nucleated Red Blood Cells % 0 %; Platelet Count 192 10^3/uL (130-400); Red Blood Cell Count 4.52 10^6/uL (4.20-5.40); Red Cell Dist. Width 14.2 % (11.5-14.5); White Blood Cell Count 4.2 10^3/uL (4.8-10.8)
[2024-09-30 11:59] LABS: ALT (SGPT) 24 U/L (0-35); AST (SGOT) 20 U/L (14-36); Alkaline Phosphatase 87 U/L (38-126); Blood Urea Nitrogen 20 mg/dl (7-17); Calcium 9.7 mg/dl (8.4-10.2); Carbon Dioxide 14 mmol/L (22-30); Chloride 96 mmol/L (98-107); Glucose 318 mg/dl (70-99); Potassium 3.6 mmol/L (3.5-5.1); Sodium 132 mmol/L (135-145); Total Bilirubin 0.4 mg/dl (0.2-1.3); Total Protein 6.1 g/dl (6.3-8.2); eGFR > 60.00
--- NOTE | 2024-09-30 12:50 | ED.GENMED ---
History of Present Illness
General
Chief Complaint: Fatigue
Time Seen by Provider: 09/30/24 12:41
History of Present Illness
History of Present Illness:
Patient is a 73-year-old woman with history of diabetes currently on pioglitazone secondary to weight loss, hypertension, hyperlipidemia presenting to the emergency department with weight loss. Patient states over the past month she has had a 30
pound weight loss. She states that she is having decreased p.o. secondary to no appetite. She denies any nausea vomiting or diarrhea. She has been constipated with her last bowel movement 6 days ago. Denies any prior abdominal surgeries. She
denies any chest pain but does note that she been having shortness of breath has been constant. This both exertional and at rest. Denies any cough or URI symptoms. No leg swelling hemoptysis or history of blood clot. She denies any recent sick
contacts. She does state that she is currently on pioglitazone for her diabetes given that other meds was causing her to have significant weight loss so her PCP discontinued them.
Past History
Past History
ED Past Medical History: Hypercholesterolemia, NIDDM, Psychiatric (Bipolar), Other (left arm michael and screws 2008 and then again 2009 with bone growth stimulator) and Other (L renal art. aneurism, bipolar)
ED Past Surgical History: Orthopedic
Patient has exhibited threatening behavior?: No
Social History
Tobacco: Non-smoker
Alcohol: Chronic alcoholic (states she quit ETOH 03/2016)
Drug: None
Personal:
Living: alone
Employment: Disabled
Family History
Family History: Hypertension
Phy Exam
Physical Exam
Physical Exam:
GENERAL: in no acute distress
HEENT: normocephalic, extraocular movements intact, dry oral mucosa
NECK: normal inspection
RESPIRATORY: no respiratory distress, clear to auscultation bilaterally
CARDIOVASCULAR: regular rate and rhythm
ABDOMEN/: soft, non-distended, diffusely tender to palpation, no rebound or guarding
EXTREMITIES: non-tender, no edema/swelling
NEUROLOGIC: awake and alert, moves all extremities
SKIN: warm
Course
Orders/Labs/Results
Orders:
Orders
09/30/24 11:28
EKG [Electrocardiogram (*1)] Urgent
Reason for Study: Fatigue / Weakness
EKG- Treatment ONCE
09/30/24 11:32
Type And Crossmatch [Type+Screen] Urgent
CBC/With Diff [Complete Blood Count/With Diff] Urgent
Comprehensive Metabolic Panel Urgent
09/30/24 12:48
CT Abd/pelvis W Iv Cont Urgent
Comment:
Reason For Exam: abdominal pain, weight loss, constipation
CR Chest - 2 Views Urgent
Comment:
Reason For Exam: sob
09/30/24 12:49
Lactated Ringers [Lr] 1,000 ml IV BOLUS
09/30/24 13:07
Troponin I Urgent
Venous Blood Gas Urgent
%Oxygen/Room Air: 98
09/30/24 13:12
Urinalysis Reflex To Culture Urgent
Date Specimen was Collected: 09/30/24
Time Specimen was Collected: 12:54
09/30/24 13:38
Bedside Glucose- Treatment Q1H
IV Insert/Care/Rem.- Treatment PRN
09/30/24 13:51
Reg Insulin 100 Units/100 ml [Novolin R Insulin Infusion] 100 units in 100 ml IV NOW
09/30/24 14:00
KCl 20 Meq/0.9%Sodchl 1000 ml [NSS with KCL 20 MEQ] 20 meq in 1,000 ml IV 250 mls/hr
09/30/24 14:13
Basic Metabolic Panel Q2H
09/30/24 15:45
Basic Metabolic Panel Q2H
09/30/24 17:45
Basic Metabolic Panel Q2H
Abnormal Lab Results
09/30/24 09/30/24 09/30/24
11:23 11:32 13:07
WBC 4.2 L 10^3/uL
(4.8-10.8)
MCH 32.5 H pg
(27.0-31.0)
Absolute Lymphs (auto) 0.5 L 10^3/uL
(1.2-3.4)
Neutrophils % 77.9 H %
(42.2-75.2)
Lymphocytes % 12.4 L %
(20.5-51.1)
VBG pH 7.29 L
(7.32-7.43)
VBG HCO3 18.8 L mmol/L
(22-27)
Sodium 132 L mmol/L
(135-145)
Chloride 96 L mmol/L
(98-107)
Carbon Dioxide 14 L* mmol/L
(22-30)
BUN 20 H mg/dl
(7-17)
Creatinine 0.5 L mg/dL
(0.6-1.0)
Glucose 318 H mg/dl
(70-99)
Total Protein 6.1 L g/dl
(6.3-8.2)
Urine Ketones
Urine Glucose
POC Glucose 291 H mg/dl
(70-99)
09/30/24 09/30/24
13:12 14:08
WBC
MCH
Absolute Lymphs (auto)
Neutrophils %
Lymphocytes %
VBG pH
VBG HCO3
Sodium
Chloride
Carbon Dioxide
BUN
Creatinine
Glucose
Total Protein
Urine Ketones 3+ A
(Negative)
Urine Glucose 3+ A
(Negative)
POC Glucose 473 H* mg/dl
(70-99)
09/30/24 11:32
Vital Signs
Initial and Last Documented VS:
Initial Vital Signs
Temp Pulse Resp BP Pulse Ox
97.6 F 98 16 117/77 100
09/30/24 11:23 09/30/24 11:23 09/30/24 11:23 09/30/24 11:23 09/30/24 11:23
Last Documented Vital Signs
Temp Pulse Resp BP Pulse Ox
97.6 F 85 43 117/77 100
09/30/24 11:23 09/30/24 13:45 09/30/24 13:45 09/30/24 11:23 09/30/24 13:45
MDM/Problems Addressed
Differential Diagnosis Includes:
Patient is a 73-year-old woman presenting to the emergency department with 30 pound weight loss in past month fatigue and shortness of breath has been constant for the past few weeks. Vitals are notable for normal oxygen on room air and her heart
rate is regular rate and rhythm per my interpretation of the monitor. On exam she does have dry oral mucosa with clear breath sounds. Does have a diffusely tender abdomen. Differential is broad but consists of metabolic derangement versus
malignancy versus obstruction versus DKA. Given the shortness of breath could be pneumonia or atypical ACS. Considered PE though her vital signs are unremarkable and she does not have any clear risk factors. Blood work obtained prior to my
evaluation does show hyperglycemia with a anion gap acidosis. Will obtain urinalysis VBG troponin. Also obtain chest x-ray and CT scan of the abdomen. Will start fluid resuscitation for DKA. Will start DKA protocol once urine is back
*Critical Care Note
Total Time (30-74mins, 75-104mins- exclusive of procedures): Not Applicable
Update Note
Update Note:
Urine with 3+ ketones. She does meet criteria for DKA. will start DKA protocol. Chest x-ray per my interpretation with no acute focal opacity.
CT scan consistent with pancreatic mass and associated toxicity. Discussed with hospitalist accepted patient for admission
ED Attending Note
-
Portions of this chart may have been created with voice recognition software.� Occasional wrong word or��sound alike� substitutions may have occurred due to the inherent limitations of voice recognition software.
Discharge Plan
Departure
Patient Disposition: Admit
Date of Disposition: 09/30/24
Time of Disposition: 14:30
Presentation/result/management discussed w/ accepting MD/DO: Hospitalist
Discharge Problem:
DKA (diabetic ketoacidosis), Mass of pancreas
Prescriptions:
No Action
atorvastatin 40 MG tablet
40 mg PO HS
sertraline 50 MG tablet
50 mg PO HS
trazodone 50 mg Tablet
50 mg PO HS
pioglitazone 45 mg Tablet
45 mg PO DAILY
risperidone [Risperdal] 2 mg Tablet
2 mg PO HS
risperidone [Risperdal] 0.5 mg Tablet
0.5 mg PO HS
metoprolol succinate 50 mg Capsule,Sprinkle,Er 24hr
50 mg PO HS
divalproex [Depakote ER] 250 mg tablet extended release 24 hr
750 mg PO HS
Referrals:
Ricardo Washington Jr., DO [Family Provider] -
Interventions
Interventions:
*Risk Screen - Suicide Last Done: 09/30/24 11:23
*General Assessment Last Done: 09/30/24 13:06
*Neglect/Abuse Screening Last Done: 09/30/24 11:23
*ED COVID-19 Vaccine History Last Done: 09/30/24 13:06
Discharge Date and Time
Print Language: LITHUANIAN
--- NOTE | 2024-09-30 13:20 | PHANOTE ---
Med History Collection:
Patient has new RX for Lantus Pens - no needles.
Patient has new RX for mirtazapine, has not yet started
[2024-09-30 13:21] LABS: Venous Blood Gas B.E. -7.3 mmol/L (-4 to +4); Venous Blood Gas HCO3 18.8 mmol/L (22-27); Venous Blood Gas O2 Sat % 64.8 %; Venous Blood Gas pCO2 39 mmHg (35-48); Venous Blood Gas pH 7.29 (7.32-7.43); Venous Blood Gas pO2 37 mmHg (30-50)
[2024-09-30 13:30] LABS: Urine Albumin Trace (Neg - Trace); Urine Bilirubin Negative (Negative); Urine Character Clear (Clear); Urine Color Yellow; Urine Glucose 3+ (Negative); Urine Ketone 3+ (Negative); Urine Leukocyte Negative (Negative); Urine Nitrite Negative (Negative); Urine Occult Blood Negative (Negative); Urine Specific Gravity 1.015 (<1.030); Urine Urobilinogen Negative (Neg - 1+)
[2024-09-30 13:47] LABS: Troponin I < 0.012 ng/ml
[2024-09-30 14:10] LABS: Glucose - Point of Care 473 mg/dl (70-99)
[2024-09-30] MEDS: NOVOLIN R INSULIN INFUSION 100 IV (14:15)
[2024-09-30] MEDS: NSS with KCL 20 MEQ 1000 IV (14:16)
[2024-09-30 14:33] LABS: Blood Urea Nitrogen 19 mg/dl (7-17); Calcium 8.8 mg/dl (8.4-10.2); Carbon Dioxide 18 mmol/L (22-30); Chloride 92 mmol/L (98-107); Estimated Creatinine Clearance 57 ml/min; Glucose 418 mg/dl (70-99); Potassium 3.4 mmol/L (3.5-5.1); Sodium 129 mmol/L (135-145); eGFR > 60.00
--- NOTE | 2024-09-30 14:53 | HPS.HSE ---
Family Physician
-
Family Physician: Ricardo Washington Jr.
Chief Complaint
-
Weight Loss
History of Present Illness
Patient is a 53-year-old female past medical history of diabetes, hypertension, bipolar disorder who presents with weight loss. Patient reports over the last 3 weeks she has lost about 30 pounds. She notes about the same timeframe her sugars
started running high. She had outpatient blood work on September 21 which revealed glucose 279 with hemoglobin A1c of 11.9. Patient reports very poor appetite. She notes some mild shortness of breath, noting she is breathing fast. She denies fever,
sweats or chills. She denies chest pain or palpitations. She denies abdominal pain, nausea or vomiting, but does admit to mild constipation.
Medical History
Past Medical History
Past Medical History: Reports Other
Additional Past Medical History:
Diabetes Mellitus, Type II
Essential Hypertension
Hyperlipidemia
Anxiety/Depression/Bipolar Disorder
Past Surgical History: Reports Other
Additional Past Surgical History:
Tonsillectomy
Right Reverse Total Shoulder Arthroplasty
Social History
Tobacco: Non-smoker
Living: Alone
Family History
Family History: Other
Allergies / Home Medications
Allergies reflects when Allergies were last updated in [employer].
Home Medications with original date entered in [employer]
Allergy/Medication List:
Allergies
Allergy/AdvReac Type Severity Reaction Status Date / Time
diclofenac sodium Allergy Rash Verified 09/30/24 11:21
[From [facility]]
misoprostol Allergy Rash Verified 09/30/24 11:21
[From [facility]]
Home Medications
atorvastatin 40 mg tablet 40 mg PO HS High Cholesterol 05/01/16
sertraline 50 mg tablet 50 mg PO HS Depression 05/01/16
metoprolol succinate 50 mg capsule sprinkle, ext. release 24 hr 50 mg PO HS Heart Disease/Condition 02/16/24
pioglitazone 45 mg tablet 45 mg PO DAILY Diabetes 02/16/24
risperidone 0.5 mg tablet (Risperdal) 0.5 mg PO HS Neurological Condition 02/16/24
risperidone 2 mg tablet (Risperdal) 2 mg PO HS Neurological Condition 02/16/24
trazodone 50 mg tablet 50 mg PO HS insomnia 02/16/24
divalproex 250 mg tablet,extended release 24 hr (Depakote ER) 750 mg PO HS Mental Health/Anxiety 02/17/24
Review of Systems
-
A 12 point ROS was completed and negative except as noted: Yes
Constitutional: Denies Fever or Chills
Abdomen/GI: Reports See HPI
Physical Exam
Vital Signs
Vital Signs
Temp Pulse Resp BP Pulse Ox
97.6 F 85 43 117/77 100
09/30/24 11:23 09/30/24 13:45 09/30/24 13:45 09/30/24 11:23 09/30/24 13:45
Physical Exam
General: Comfortable, Conversant and Cachectic
HEENT: NormoCephalic, Anicteric and Other (Lips are dry)
Respiratory: Clear and Other (Slight tachypnea)
Cardiac: S1/S2 and Regular Rhythm
GI: Soft and Non Tender
Rectal: Deferred by Provider
Musculoskeletal: No Clubbing and No Cyanosis
Skin: Warm and Dry
Neuro: Awake, Alert, Oriented and Nonfocal/grossly intact
Psych: Calm
Laboratory Results
-
09/30/24 11:32
Laboratory Results
Total Bilirubin 0.4 mg/dl (0.2-1.3) 09/30/24 11:32
AST 20 U/L (14-36) 09/30/24 11:32
ALT 24 U/L (0-35) 09/30/24 11:32
Alkaline Phosphatase 87 U/L (38-126) 09/30/24 11:32
Troponin I < 0.012 ng/ml 09/30/24 13:07
Impression/Plan
-
Diabetic Ketoacidosis
-Admit to IMU
-Continue NPO
-Continue IVFs and Insulin Drip
-Monitor bedside glucose q1H and BMP q4H once potassium is corrected
-Consult Diabetic ADHESIVE PRIMER for insulin management after anion gap is closed
-HgbA1c 11.9 on 09/21/24
Pancreatic Mass (new diagnosis), possibly pancreatic cancer with liver mets
-Consult Oncology
-Check CA 19-19
Severe Protein Calorie Malnutrition
-Patient with 30lb weight loss
-Consult Tyre Fitter
Essential Hypertension
-Continue metoprolol
Hyperlipidemia
-Continue atorvastatin
Bipolar Disorder
-Continue Depakote, Risperdal and Sertraline
DVT proph: Lovenox
Code Status: DNR
--- NOTE | 2024-09-30 15:08 | W.PN.UPDATE ---
Update Note
Progress Note Update
This is an addendum to H&P written by SEAN Bland
I saw and examined the patient.
The HIGH SCHOOL COUNSELOR's note was reviewed and I agree with the note.
Comment:
Ms. Yoli Ferrara is a 73 yo woman with hx NIDDM, on Pioglitazone 2/2 weight loss, essential HTN, HLD presents to the ER with 30 lb weight loss and fatigue.
Triage VS: T 97.6, P 98, RR 16, BP 117/77, SpO2 100%
LABS: WBC 4.2, Hg 14.7, PLT 192, Na 132, K+ 3.6, CO2 14, Cr 0.5, Glucose 318, Ca 9.7, T. Bili 0.4, AST 20, ALT 24, Alk Pho2 87, Trop < 0.012
UA with 3+ Ketones
MAR: 1L IVF, IV insulin, IVF + K
CT A/P
IMPRESSION:
1. Pancreatic head mass in keeping with primary neoplasm. Associated near complete narrowing/occlusion of the distal main portal vein.
2. Several scattered hypoattenuating hepatic lesions in both lobes most in keeping with metastases.
3. Moderate to severe constipation.
CXR
IMPRESSION:
No acute cardiopulmonary process.
DKA
-in setting of pancreatic mass/disease
-admit to IMU
-s/p 1L in ER continue KCl 20 @ 250/hr
-continue insulin gtt
-BMP q 2 hours until K+ WNL then q 4 hours (repleting additional K now)
-change fluids to D5 when BGL < 250
-HIGH SCHOOL COUNSELOR DM consult, patient will need initiation of subQ insulin
-F/U HgA1c
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
new finding Pancreatic Mass, concern for metastatic disease to liver
-Oncology consult to help guided IR versus GI EUS biopsy
-patient aware of these findings
Remainder of plan per HIGH SCHOOL COUNSELOR note
76 minutes spent on patient care
[2024-09-30 15:12] LABS: Glucose - Point of Care 363 mg/dl (70-99)
[2024-09-30 15:39] LABS: Direct Bilirubin 0.2 mg/dl (0.0-0.4)
[2024-09-30] MEDS: KCL ELIXIR 40 MEQ PO (16:03)
[2024-09-30 16:18] LABS: Glucose - Point of Care 304 mg/dl (70-99)
[2024-09-30 17:03] LABS: Blood Urea Nitrogen 16 mg/dl (7-17); Calcium 8.8 mg/dl (8.4-10.2); Carbon Dioxide 18 mmol/L (22-30); Chloride 98 mmol/L (98-107); Estimated Creatinine Clearance 57 ml/min; Glucose 215 mg/dl (70-99); Potassium 3.8 mmol/L (3.5-5.1); Sodium 131 mmol/L (135-145); eGFR > 60.00
[2024-09-30 17:29] LABS: Glucose - Point of Care 213 mg/dl (70-99)
[2024-09-30] MEDS: D5/0.45%NSS with KCL 20 MEQ 1000 IV (18:14)
[2024-09-30] MEDS: LOVENOX 30 MG SC (18:15)
[2024-09-30 18:30] LABS: Glucose - Point of Care 203 mg/dl (70-99)
[2024-09-30 19:23] LABS: Glucose - Point of Care 142 mg/dl (70-99)
[2024-09-30 19:46] LABS: Blood Urea Nitrogen 13 mg/dl (7-17); Calcium 8.5 mg/dl (8.4-10.2); Carbon Dioxide 18 mmol/L (22-30); Chloride 99 mmol/L (98-107); Estimated Creatinine Clearance 57 ml/min; Glucose 141 mg/dl (70-99); Potassium 3.3 mmol/L (3.5-5.1); Sodium 132 mmol/L (135-145); eGFR > 60.00
[2024-09-30 20:16] LABS: Glucose - Point of Care 136 mg/dl (70-99)
[2024-09-30] MEDS: KCL ELIXIR 40 MEQ TUBE (20:20)
[2024-09-30 20:51] LABS: Glucose - Point of Care 112 mg/dl (70-99)
[2024-09-30 21:22] LABS: Glucose - Point of Care 179 mg/dl (70-99)
[2024-09-30 22:24] LABS: Blood Urea Nitrogen 11 mg/dl (7-17); Calcium 8.7 mg/dl (8.4-10.2); Carbon Dioxide 12 mmol/L (22-30); Chloride 101 mmol/L (98-107); Estimated Creatinine Clearance 57 ml/min; Glucose 160 mg/dl (70-99); Potassium 4.3 mmol/L (3.5-5.1); Sodium 129 mmol/L (135-145); eGFR > 60.00
[2024-09-30 22:39] LABS: Glucose - Point of Care 313 mg/dl (70-99)
[2024-09-30 23:44] LABS: Glucose - Point of Care 570 mg/dl (70-99)
[2024-09-30] MEDS: TOPROL XL 50 MG PO (23:57)
[2024-09-30] MEDS: LIPITOR 40 MG PO (23:57)
[2024-09-30] MEDS: SODIUM BICARBONATE 50 MEQ IV (23:57)
[2024-09-30] MEDS: DESYREL 50 MG PO (23:58)
[2024-09-30] MEDS: ZOLOFT 50 MG PO (23:58)
[2024-10-01] VITALS (19 sets, daily range): BP systolic 104–138; BP diastolic 50–92; BMI 16.1
--- NOTE | 2024-10-01 | PTCARENOTE ---
Pt's CO2 12. Notified HANY Ross. Rx received for IV sodium bicarb (see MAR).
[2024-10-01 00:19] LABS: Glucose 128 mg/dl (70-99)
[2024-10-01] MEDS: RISPERDAL 2 MG PO ×2 (00:32→21:22)
[2024-10-01] MEDS: DEPAKOTE ER (24 HR RELEASE) 750 MG PO ×2 (00:33→21:20)
[2024-10-01 00:36] LABS: Glucose - Point of Care 125 mg/dl (70-99)
[2024-10-01 01:45] LABS: Glucose - Point of Care 121 mg/dl (70-99)
--- NOTE | 2024-10-01 01:53 | PTCARENOTE ---
Received verbal report from CITLALY Ferraro. Pt arrived to unit on stretcher from ED. Pt aaox3. 99% on RA. Insulin gtt currently infusing at 1 u/hr. anion gap 16. accu checks ongoing q1 and gtt titrated per Rx (see worklist). D5 1/2 NSS w/K infusing @
125 mL/hr. Pt oriented to unit and admission completed. Pt resting in bed will call pro in reach.
[2024-10-01] MEDS: RISPERDAL 0.5 MG PO ×2 (02:17→21:22)
[2024-10-01] MEDS: D5/0.45%NSS with KCL 20 MEQ 1000 IV (02:17)
[2024-10-01 02:40] LABS: Glucose - Point of Care 104 mg/dl (70-99)
[2024-10-01 02:54] LABS: Blood Urea Nitrogen 12 mg/dl (7-17); Calcium 8.5 mg/dl (8.4-10.2); Carbon Dioxide 24 mmol/L (22-30); Chloride 102 mmol/L (98-107); Estimated Creatinine Clearance 57 ml/min; Glucose 112 mg/dl (70-99); Potassium 3.5 mmol/L (3.5-5.1); Sodium 132 mmol/L (135-145); eGFR > 60.00
--- NOTE | 2024-10-01 03:08 | PTCARENOTE ---
anion gap 6
--- NOTE | 2024-10-01 03:23 | W.PN.UPDATE ---
Update Note
Progress Note Update
Anion gap is 6, will give 10 units of Lantus, d/c insulin drip. ISS ordered and will start the patient on diabetic diet.
[2024-10-01 03:38] LABS: Glucose - Point of Care 119 mg/dl (70-99)
--- NOTE | 2024-10-01 03:41 | PTCARENOTE ---
Notified HANY Ross of pt's recent blood glucose results and anion gap of 6. Rx received to give 10 u of Lantus (see MAR) and to stop insulin gtt and IVF one hour after administration.
[2024-10-01] MEDS: LANTUS 0.1 UNITS SC (03:43)
[2024-10-01 05:00] LABS: Glucose - Point of Care 163 mg/dl (70-99)
[2024-10-01 06:31] LABS: Hematocrit 37.2 % (37.0-47.0); Hemoglobin 13.3 g/dL (12.0-16.0); Mean Corp Hgb Conc. 35.8 g/dL (33.0-37.0); Mean Corpuscular Volume 89.6 fL (81.0-99.0); Mean Platelet Volume 9.1 fL (7.4-10.4); Platelet Count 152 10^3/uL (130-400); Red Blood Cell Count 4.15 10^6/uL (4.20-5.40); Red Cell Dist. Width 14.2 % (11.5-14.5); White Blood Cell Count 4.5 10^3/uL (4.8-10.8)
[2024-10-01 06:44] LABS: Blood Urea Nitrogen 10 mg/dl (7-17); Calcium 8.3 mg/dl (8.4-10.2); Carbon Dioxide 23 mmol/L (22-30); Chloride 100 mmol/L (98-107); Estimated Creatinine Clearance 57 ml/min; Glucose 169 mg/dl (70-99); Potassium 3.2 mmol/L (3.5-5.1); Sodium 129 mmol/L (135-145); eGFR > 60.00
[2024-10-01 06:47] LABS: Glucose - Point of Care 166 mg/dl (70-99)
--- NOTE | 2024-10-01 07:52 | PTCARENOTE ---
On am rounds pt AAOx2 , pale offering no complaints . Insulin gtt off
[2024-10-01 08:08] LABS: Glucose - Point of Care 176 mg/dl (70-99)
[2024-10-01] MEDS: NOVOLOG FLEXPEN-LOW RESISTANCE 1 UNITS SC (08:46)
--- NOTE | 2024-10-01 08:51 | PTCARENOTE ---
Talking with pt states she lives alone , she does not know about her insulin if she takes it or not . Also states she doesnt eat because she can not get to the store and there is no one to help her.
[2024-10-01] MEDS: KCL 40 MEQ PO ×2 (10:30→13:52)
[2024-10-01 10:48] LABS: Blood Urea Nitrogen 9 mg/dl (7-17); Calcium 8.2 mg/dl (8.4-10.2); Carbon Dioxide 26 mmol/L (22-30); Chloride 97 mmol/L (98-107); Estimated Creatinine Clearance 57 ml/min; Glucose 249 mg/dl (70-99); Potassium 3.3 mmol/L (3.5-5.1); Sodium 130 mmol/L (135-145); eGFR > 60.00
--- NOTE | 2024-10-01 11:40 | CM ---
Addendum entered by MARY Berkowitz 10/01/24 16:36:
Received hospice consult. Messaged w/e bottomer operator.
Original Note:
Placed a call to patient's brother who is listed on chart as patient's contact. He answered and stated that he would be able to provide information for assessment. Patient's brother stated that patient lives alone in a multi story home with 4 steps
to enter. 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 She has some friends who are local who assist her with getting to appointments and shopping but her
brother stated that she has very limited supports. Patient receives meals on wheels but per brother has not been eating them.
Patient has a Glucometer and just started taking insulin but her brother stated that she just started it prior to admission.
Patient has hx of bipolar disorder, depression and anxiety for which she sees a therapist. She has a distant hx of etoh but her brother stated that she has not been drinking recently.
Patient has been to [facility] in the past for rehab.
She has not had VN services.
She has no DME with exception of a glucometer.
Patient has a prescription plan and goes to [facility] pharmacy for all of her medications.
Patient's PCP is, Ricardo Aaron.
Patient's brother stated that it would be difficult for her to return home as she just experienced a 30 lb weight loss an does not seem to have any support network.
Received consult for homecare.
Will watch for SNF needs.
Plan: Case management will continue to follow and assist with discharge planning. Home with VN vrs SNF when stable.
[2024-10-01] MEDS: NOVOLOG FLEXPEN-LOW RESISTANCE 2 UNITS SC (11:47)
[2024-10-01 12:02] LABS: Glucose - Point of Care 232 mg/dl (70-99)
--- NOTE | 2024-10-01 12:05 | CON.ONC ---
Impression
Impression
suspected pancreas cancer, metastatic to liver
DKA
Plan
Plan
I reviewed with the patient the findings on imaging, suggesting pancreatic cancer metastatic to the liver. She is not interested in further workup with biopsy, would not be interested in any treatment including chemotherapy. She requested hospice.
I think this is reasonable. Case management consult placed.
Oncology will sign off. Please call with any questions.
Patient History
History of Present Illness
This is a 73-year-old woman who presented to the emergency room with progressive fatigue, shortness of breath, and 30 pound weight loss. Blood work showed hyperglycemia with an anion gap acidosis, consistent with DKA. Because of abdominal pain and
weight loss, she underwent CT scans of the abdomen and pelvis which showed a mass in the head of the pancreas and several hepatic lesions most consistent with metastases.
She was admitted to the IMU for management of DKA.
Past-Medical/Surgical History
Past Medical History
Past Medical History: Reports Other
Additional Past Medical History:
Diabetes Mellitus, Type II
Essential Hypertension
Hyperlipidemia
Anxiety/Depression/Bipolar Disorder
Past Surgical History: Reports Other
Additional Past Surgical History:
Tonsillectomy
Right Reverse Total Shoulder Arthroplasty
Social History
Tobacco: Non-smoker
Living: Alone
Family History
Family History: N/C
Patient Medication
�Medication �Instructions �Recorded �Confirmed �Last Taken �Type
atorvastatin 40 mg tablet 40 mg PO HS High Cholesterol 05/01/16 09/30/24 09/29/24 History
sertraline 50 mg tablet 50 mg PO HS Depression 05/01/16 09/30/24 3 Days Ago History
~09/27/24
metoprolol succinate 50 mg capsule 50 mg PO HS Heart Disease/Condition 02/16/24 09/30/24 09/29/24 History
sprinkle, ext. release 24 hr
pioglitazone 45 mg tablet 45 mg PO DAILY Diabetes 02/16/24 09/30/24 09/30/24 History
risperidone 0.5 mg tablet 0.5 mg PO HS Neurological Condition 02/16/24 09/30/24 09/29/24 History
(Risperdal)
risperidone 2 mg tablet (Risperdal) 2 mg PO HS Neurological Condition 02/16/24 09/30/24 09/29/24 History
trazodone 50 mg tablet 50 mg PO HS insomnia 02/16/24 09/30/24 09/29/24 History
divalproex 250 mg tablet,extended 750 mg PO HS Mental Health/Anxiety 02/17/24 09/30/24 09/29/24 History
release 24 hr (Depakote ER)
Active Medications
Generic Name Dose Route Start Last Admin
Trade Name Freq PRN Reason Stop Dose Admin
Atorvastatin Calcium 40 mg 09/30/24 22:00 09/30/24 23:57
Atorvastatin (Lipitor) 40 Mg Tablet PO 10/28/24 21:59 40 mg
HS JUAN JOSÉ Administration
Dextrose 12.5 grams 10/01/24 04:00
Dextrose 50% (0.5 Grams/Ml) 50 Ml Syringe IV 10/29/24 03:59
[id number] PRN
hypoglycemia
Protocol
Divalproex Sodium 750 mg 09/30/24 22:00 10/01/24 00:33
Divalproex 250 Mg Extended Release (24 Hr) Tablet PO 10/28/24 21:59 750 mg
HS JUAN JOSÉ Administration
Enoxaparin Sodium 30 mg 09/30/24 18:00 09/30/24 18:15
Enoxaparin Sodium 30 Mg/0.3 Ml Syringe SC 10/28/24 17:59 30 mg
QPM JUAN JOSÉ Administration
Glucagon 1 mg 10/01/24 04:00
Glucagon 1 Mg Vial IM 10/29/24 03:59
PRN PRN
hypoglycemia - no IV access
Protocol
Insulin Glargine 5 units/ 0.05 mls @ 0 mls/hr 10/02/24 08:00
Device SC 10/30/24 07:59
DAILY JUNA JOSÉ
As Directed
Insulin Aspart 0 units 10/01/24 07:30 10/01/24 11:47
Insulin Aspart Low Resistance 300 Units/3 Ml Pen.Injctr SC 10/29/24 07:29 2 units
AC JUAN JOSÉ Administration
Protocol
Metoprolol Succinate 50 mg 09/30/24 22:00 09/30/24 23:57
Metoprolol 50 Mg Extended Release Tablet PO 10/28/24 21:59 50 mg
HS JUAN JOSÉ Administration
Potassium Chloride 40 meq 10/01/24 10:00 10/01/24 10:30
Potassium Chloride 20 Meq Extended Release Tablet PO 10/01/24 14:01 40 meq
Q4H JUAN JOSÉ Administration
Risperidone 2 mg 09/30/24 22:00 10/01/24 00:32
Risperidone 2 Mg Tablet PO 10/28/24 21:59 2 mg
HS JUAN JOSÉ Administration
Risperidone 0.5 mg 09/30/24 22:00 10/01/24 02:17
Risperidone 0.5 Mg Tablet PO 10/28/24 21:59 0.5 mg
HS JUAN JOSÉ Administration
Sertraline HCl 50 mg 09/30/24 22:00 09/30/24 23:58
Sertraline 50 Mg Tablet PO 10/28/24 21:59 50 mg
HS JUAN JOSÉ Administration
Sodium Chloride 0 flush 09/30/24 18:00
Sodium Chloride 0.9% (Flush) Syringe IV 10/28/24 17:59
PER PROTOCOL JUAN JOSÉ
Trazodone HCl 50 mg 09/30/24 22:00 09/30/24 23:58
Trazodone 50 Mg Tablet PO 10/28/24 21:59 50 mg
HS JUAN JOSÉ Administration
Physical Exam
-
General: No Apparent Distress and Conversant; Negative Well Developed, Well Nourished or Respiratory Distress
HEENT: Negative Jaundice
Musculoskeletal: No Clubbing, No Cyanosis and No Edema
Extremities: No C/C/E
Neurology: Non Focal, No Lateralizing Symptoms and No Word Finding Difficulty
Skin: Warm and Dry
Psych: Calm and Intact Judgement/Insight
Labs
Lab Results
WBC 4.5 10^3/uL (4.8-10.8) L 10/01/24 06:09
RBC 4.15 10^6/uL (4.20-5.40) L 10/01/24 06:09
Hgb 13.3 g/dL (12.0-16.0) 10/01/24 06:09
Hct 37.2 % (37.0-47.0) 10/01/24 06:09
MCV 89.6 fL (81.0-99.0) 10/01/24 06:09
MCH 32.0 pg (27.0-31.0) H 10/01/24 06:09
MCHC 35.8 g/dL (33.0-37.0) 10/01/24 06:09
RDW 14.2 % (11.5-14.5) 10/01/24 06:09
Plt Count 152 10^3/uL (130-400) D 10/01/24 06:09
MPV 9.1 fL (7.4-10.4) 10/01/24 06:09
Abs Immat Gran (auto) 0.0 10^3/uL (0-0.05) 09/30/24 11:32
Absolute Neuts (auto) 3.3 10^3/uL (1.4-6.5) 09/30/24 11:32
Absolute Lymphs (auto) 0.5 10^3/uL (1.2-3.4) L 09/30/24 11:32
Absolute Monos (auto) 0.4 10^3/uL (0.1-0.6) 09/30/24 11:32
Absolute Eos (auto) 0.0 10^3/uL (0-0.7) 09/30/24 11:32
Absolute Basos (auto) 0.0 10^3/uL (0-0.2) 09/30/24 11:32
Immature Gran % 0.2 % (0-0.5) 09/30/24 11:32
Neutrophils % 77.9 % (42.2-75.2) H 09/30/24 11:32
Lymphocytes % 12.4 % (20.5-51.1) L 09/30/24 11:32
Monocytes % 9.3 % (1.7-9.3) 09/30/24 11:32
Eosinophils % 0.0 % (0-6) 09/30/24 11:32
Basophils % 0.2 % (0-2) 09/30/24 11:32
Creatinine 0.3 mg/dL (0.6-1.0) L 10/01/24 10:23
Vital Signs
Vital Signs
Temp Pulse Resp BP Pulse Ox
97.3 F 69 14 104/56 98
10/01/24 07:05 10/01/24 06:00 10/01/24 06:00 10/01/24 04:00 10/01/24 09:51
--- NOTE | 2024-10-01 13:39 | W.PN.HOSP.TC ---
Today's Communication/Plan
-
Assessment / Plan
Assessment / Plan
NAD, tearful, cachectic, temporal wasting
Scleral Anicteric
MMM
No JVD
CTABL
RRR, S1/S2
Soft, diffuse tenderness, ND, BS+
Warm, Dry
AAOx3
Calm
Abdominal pain secondary to pancreatic head mass with mets to the liver. Does not want biopsy. Does not want treatment. Does not want any heroic measures. Wants to be DNR/DNI. Wants to be hospice. statistics manager consulted for hospice evaluation.
Total time spent discussing this 36 minutes. Multiple attempts made to call brother as this is her next of kin. She is not nor does she have any children.
Euglycemia DKA in the setting of pioglitazone use and evidence of concerning findings for pancreatic cancer resolved
Diabetes with a recent A1c in , continue sliding scale, will need insulin long and short acting on discharge, Accu-Cheks, goal blood glucose 1 40-1 80
Anticipated Discharge: 24 - 48 hours
Subjective/Interval History
-
Date of Service: October 01, 2024
Seen and examined. No new complaints. No acute overnight event
Had a lengthy bedside discussion with her
Objective Data
-
Labs:
Laboratory Results
10/01/24 10/01/24 10/01/24
02:26 06:09 10:23
WBC 4.5 L
Hgb 13.3
Hct 37.2
Plt Count 152 D
Sodium 132 L 129 L 130 L
Potassium 3.5 3.2 L 3.3 L
Chloride 102 100 97 L
Carbon Dioxide 24 23 26
BUN 12 10 9
Creatinine 0.3 L 0.3 L 0.3 L
Glucose 112 H 169 H 249 H
Calcium 8.5 8.3 L 8.2 L
10/01/24 10/01/24 10/01/24
14:00 18:00 18:00
WBC
Hgb
Hct
Plt Count
Sodium Cancelled Cancelled Pending
Potassium Cancelled Cancelled
Chloride Cancelled
Carbon Dioxide Cancelled
BUN Cancelled
Creatinine Cancelled
Glucose Cancelled
Calcium Cancelled
10/01/24 10/01/24 10/01/24
18:00 18:00 18:00
WBC
Hgb
Hct
Plt Count
Sodium
Potassium Pending
Chloride Cancelled Pending
Carbon Dioxide Cancelled Pending
BUN Cancelled
Creatinine
Glucose
Calcium
10/01/24 10/01/24 10/01/24
18:00 18:00 18:00
WBC
Hgb
Hct
Plt Count
Sodium
Potassium
Chloride
Carbon Dioxide
BUN Pending
Creatinine Cancelled Pending
Glucose Cancelled Pending
Calcium Cancelled
10/01/24
18:00
WBC
Hgb
Hct
Plt Count
Sodium
Potassium
Chloride
Carbon Dioxide
BUN
Creatinine
Glucose
Calcium Pending
Vital Signs:
Vital Signs
Temp Pulse Resp BP Pulse Ox
97.8 F 81 18 115/58 98
10/01/24 11:30 10/01/24 13:00 10/01/24 13:00 10/01/24 13:00 10/01/24 12:00
I&O
09/30/24 10/01/24 10/02/24
06:59 06:59 06:59
Intake Total 1250 / 1250
Output Total 450 / 450 400 / 400
Balance 800 / 800 -400 / -400
--- NOTE | 2024-10-01 15:19 | PTCARENOTE ---
Pt back to bed
[2024-10-01] MEDS: NOVOLOG FLEXPEN-LOW RESISTANCE 3 UNITS SC (16:56)
[2024-10-01 17:10] LABS: Glucose - Point of Care 264 mg/dl (70-99)
[2024-10-01] MEDS: LOVENOX 30 MG SC (17:33)
[2024-10-01 18:27] LABS: Blood Urea Nitrogen 7 mg/dl (7-17); Carbon Dioxide 29 mmol/L (22-30); Chloride 93 mmol/L (98-107); Estimated Creatinine Clearance 57 ml/min; Glucose 271 mg/dl (70-99); Potassium 3.6 mmol/L (3.5-5.1); Sodium 128 mmol/L (135-145); eGFR > 60.00
[2024-10-01] MEDS: TOPROL XL 50 MG PO (21:20)
[2024-10-01] MEDS: DESYREL 50 MG PO (21:22)
[2024-10-01] MEDS: ZOLOFT 50 MG PO (21:22)
[2024-10-01] MEDS: LIPITOR 40 MG PO (21:22)
[2024-10-01 21:32] LABS: Glucose - Point of Care 299 mg/dl (70-99)
--- NOTE | 2024-10-01 22:41 | PTCARENOTE ---
Pt aaox3. NSR on monitor. 99% on RA. No complaints at this time and able to make needs known. All JUAN JOSÉ meds given (see MAR). Offered oral care but pt refused and said she wanted to wait until the morning. This RN educated pt on importance of hygiene.
Pt resting in bed with call pro in reach.
[2024-10-01 23:23] LABS: Glucose - Point of Care 269 mg/dl (70-99)
[2024-10-02] VITALS (10 sets, daily range): BP systolic 111–145; BP diastolic 63–80; BMI 16.1
--- NOTE | 2024-10-02 00:15 | PTCARENOTE ---
Pt removed PW. brief and bed saturated. Full bed change, bathing clots and perineal care completed. New PW in place draining yellow urine.
[2024-10-02 02:57] LABS: Glucose - Point of Care 203 mg/dl (70-99)
[2024-10-02 05:01] LABS: Blood Urea Nitrogen 5 mg/dl (7-17); Calcium 8.7 mg/dl (8.4-10.2); Carbon Dioxide 28 mmol/L (22-30); Chloride 97 mmol/L (98-107); Estimated Creatinine Clearance 57 ml/min; Glucose 217 mg/dl (70-99); Potassium 3.9 mmol/L (3.5-5.1); Sodium 131 mmol/L (135-145); eGFR > 60.00
[2024-10-02 05:27] LABS: Hematocrit 42.8 % (37.0-47.0); Hemoglobin 15.2 g/dL (12.0-16.0); Mean Corp Hgb Conc. 35.5 g/dL (33.0-37.0); Mean Corpuscular Hgb 31.9 pg (27.0-31.0); Mean Corpuscular Volume 89.9 fL (81.0-99.0); Mean Platelet Volume 9.6 fL (7.4-10.4); Platelet Count 140 10^3/uL (130-400); Red Blood Cell Count 4.76 10^6/uL (4.20-5.40); Red Cell Dist. Width 13.9 % (11.5-14.5); White Blood Cell Count 4.6 10^3/uL (4.8-10.8)
[2024-10-02] MEDS: NOVOLOG FLEXPEN-LOW RESISTANCE 2 UNITS SC ×2 (08:06→12:38)
[2024-10-02] MEDS: NOVOLOG FLEXPEN 3 UNITS SC (08:07)
[2024-10-02 08:12] LABS: Glucose - Point of Care 223 mg/dl (70-99)
[2024-10-02] MEDS: LANTUS 0.05 UNITS SC (08:39)
--- NOTE | 2024-10-02 10:09 | HOSPNOTE ---
Met with patient to explain hospice services and philosophy. Explained the places hospice care can be administered. patient is aware it is too challenging for her to return home as she is weak and fearful of falling, has 3 flights of stairs in her
home and has not been able to prepare meals for herself. She is interested starting hospice in a facility setting. She states her funds are somewhat limited but would like a [facility] in the [place] area if possible. [facility] mentioned [facility] and [facility] as possible locations. Her brother is located in [place]. Discussed that hospice services are similar if she chooses a facility that [facility] does not service. Will continue to follow while placed is
sought.
[2024-10-02] MEDS: MILK OF MAGNESIA 30 ML PO (10:27)
--- NOTE | 2024-10-02 11:40 | PTCARENOTE ---
Patient is out of bed to chair, denying pain when asked. Patient met with hospice. Plan if care discussed. Patient c/o constipation, Milk of Mag administered. Patient is in good spirits watching TV and on the phone with friends.
--- NOTE | 2024-10-02 11:51 | W.PN.HOSP.TC ---
Addendum entered and electronically signed by Barron Alvarado MD 10/10/24 13:22:
hypokalemia
Original Note:
Today's Communication/Plan
-
Downgrade to MedSurg
Continue DNR
Case management to start working on hospice at [facility]
Assessment / Plan
Assessment / Plan
NAD, tearful, cachectic, temporal wasting
Scleral Anicteric
MMM
No JVD
CTABL
RRR, S1/S2
Soft, diffuse tenderness, ND, BS+
Warm, Dry
AAOx3
Calm
Abdominal pain secondary to pancreatic head mass with mets to the liver. Does not want biopsy. Does not want treatment. Does not want any heroic measures. Wants to be DNR/DNI. Wants to be hospice. membership sales manager consulted for hospice evaluation.
Total time spent discussing this 36 minutes. Multiple attempts made to call brother as this is her next of kin. She is not nor does she have any children.
Euglycemia DKA in the setting of pioglitazone use and evidence of concerning findings for pancreatic cancer resolved
Diabetes with a recent A1c in 11, continue sliding scale, will need insulin long and short acting on discharge, Accu-Cheks, goal blood glucose 140-180. Diabetes to evaluate
Hyponatremia improving, encourage p.o. intake
Anticipated Discharge: 24 - 48 hours
Subjective/Interval History
-
Date of Service: October 02, 2024
Seen and examined. Has been evaluated by hospice nurse. Understands that she cannot go home with home hospice as she does not have help or anyone to care for her. Therefore agreeable to hospice at a SNF setting
Objective Data
-
Labs:
Laboratory Results
10/02/24
03:50
WBC 4.6 L
Hgb 15.2
Hct 42.8
Plt Count 140
Sodium 131 L
Potassium 3.9
Chloride 97 L
Carbon Dioxide 28
BUN 5 L
Creatinine 0.3 L
Glucose 217 H
Calcium 8.7
Vital Signs:
Vital Signs
Temp Pulse Resp BP Pulse Ox
97.7 F 85 17 118/70 98
10/02/24 07:30 10/02/24 11:21 10/02/24 11:21 10/02/24 11:21 10/02/24 11:21
I&O
10/01/24 10/02/24 10/03/24
06:59 06:59 06:59
Intake Total 1250 / 1250 480 / 480 160 / 160
Output Total 450 / 450 400 / 400 400 / 400
Balance 800 / 800 80 / 80 -240 / -240
--- NOTE | 2024-10-02 12:32 | PTCARENOTE ---
Report given to Tiffany BOUCHER for transfer to room 336, bed 2. Belongings in room to be sent with patient.
[2024-10-02] MEDS: NOVOLOG FLEXPEN 4 UNITS SC ×2 (12:38→18:04)
[2024-10-02 12:47] LABS: Glucose - Point of Care 220 mg/dl (70-99)
--- NOTE | 2024-10-02 13:44 | CHAP ---
Visited [facility] at 10:30am. She has a positive outlook and appreciates company. Emotional and spiritual support provided.
[2024-10-02 16:39] LABS: Glucose - Point of Care 121 mg/dl (70-99)
[2024-10-02] MEDS: NOVOLOG FLEXPEN-LOW RESISTANCE SC (16:55)
--- NOTE | 2024-10-02 18:00 | PTCARENOTE ---
Received Pt from IMU this shift. Oriented to room and use of call pro. Belongings at bedside. Pt stated ' just wanting to rest'. Checked throughout shift. Call pro within reach.
[2024-10-02] MEDS: LOVENOX 30 MG SC (18:05)
[2024-10-02] MEDS: TOPROL XL 50 MG PO (21:31)
[2024-10-02] MEDS: DESYREL 50 MG PO (21:31)
[2024-10-02] MEDS: DEPAKOTE ER (24 HR RELEASE) 750 MG PO (21:31)
[2024-10-02] MEDS: RISPERDAL 2 MG PO (21:31)
[2024-10-02] MEDS: RISPERDAL 0.5 MG PO (21:31)
[2024-10-02] MEDS: LIPITOR 40 MG PO (21:31)
[2024-10-02] MEDS: ZOLOFT 50 MG PO (21:32)
[2024-10-02 21:36] LABS: Glucose - Point of Care 157 mg/dl (70-99)
[2024-10-03 04:01] VITALS: BMI 15.7
[2024-10-03 05:56] LABS: Hematocrit 39.9 % (37.0-47.0); Hemoglobin 14.2 g/dL (12.0-16.0); Mean Corp Hgb Conc. 35.6 g/dL (33.0-37.0); Mean Corpuscular Hgb 32.6 pg (27.0-31.0); Mean Corpuscular Volume 91.5 fL (81.0-99.0); Mean Platelet Volume 9.3 fL (7.4-10.4); Platelet Count 92 10^3/uL (130-400); Red Blood Cell Count 4.36 10^6/uL (4.20-5.40)
[2024-10-03 06:26] LABS: Blood Urea Nitrogen 11 mg/dl (7-17); Calcium 8.6 mg/dl (8.4-10.2); Carbon Dioxide 32 mmol/L (22-30); Chloride 93 mmol/L (98-107); Estimated Creatinine Clearance 56 ml/min; Glucose 223 mg/dl (70-99); Sodium 129 mmol/L (135-145); eGFR > 60.00
[2024-10-03 07:38] VITALS: BP 133/68
[2024-10-03 07:48] LABS: Glucose - Point of Care 219 mg/dl (70-99)
--- NOTE | 2024-10-03 07:53 | PN.DE.MGMTRT ---
Insulin Management
- -
10/03/2024: Diabetes Management Consult
73 year old female with PMH: HTN, bipolar disorder and T2DM. Patient presented to the emergency room with progressive fatigue, shortness of breath, and 30 pound weight loss. Blood work showed hyperglycemia with an anion gap acidosis, consistent
with DKA, A1c of 11.9%. Because of abdominal pain and weight loss, she underwent CT scans of the abdomen and pelvis which showed a mass in the head of the pancreas and several hepatic lesions most consistent with metastases. Per chart review, pt
does not want biopsy, nor does she want treatment or any heroic measures. She has elected to be DNR/DNI and hospice with plans for hospice at a SNF setting.
Pt awake, alert, oriented, sitting up in bed, eating breakfast, offers no complaints, able to discuss diabetes mgt.
Discussed with pt likelihood of hypoglycemia in setting of poor appetite and poor oral intake, states she understands and would like to continue with insulin therapy for now.
Premeal glucose range 121 to 223, FBG 223 this AM. Will increase Lantus dose to 10 units, pt already received 7 units this AM, will adm an additional 3 units now.
Will increase NovoLog from 4 units to 6 units AC. STOP Actos and Rybelsus indefinitely
Will cont to closely follow and monitor glucose trend, anticipate dose adjustment with end goal of complete discontinuation of insulin once pt has been signed on to Hospice.
Discussed with pt and Nurse.
Diabetes History
- -
Type of Diabetes: 2 requiring insulin
Pre-Admission Diabetes Regimen
10/03/24
05:28
Creatinine 0.3 L
Lab Results
Hemoglobin A1c Cancelled 09/30/24 11:32
Insulin Pump Settings
IP Diabetes Regimen
10/02/24 10/02/24 10/02/24
08:01 12:36 16:38
Glucose
POC Glucose 223 H 220 H 121 H
01/19/25 01/20/25 01/20/25
21:34 05:28 07:47
Glucose 223 H
POC Glucose 157 H 219 H
Meal type: Breakfast
Amount consumed: 75%
Patient Education
[2024-10-03] MEDS: NOVOLOG FLEXPEN-LOW RESISTANCE 2 UNITS SC ×2 (08:27→16:21)
[2024-10-03] MEDS: LANTUS 0.07 UNITS SC (08:27)
[2024-10-03] MEDS: NOVOLOG FLEXPEN 4 UNITS SC (08:28)
[2024-10-03] MEDS: MIRALAX 17 GRAMS PO (08:31)
--- NOTE | 2024-10-03 09:12 | PN.CDI ---
CDI
- -
CDI:
Physician Documentation Request
Admit Date: 09/30/24 15:45
Dear Doctor Christiano,
Patient admitted for pancreatic malignancy.
09/30 Update note: 'BMP q 2 hours until K+ WNL then q 4 hours (repleting additional K now)'
09/30 Potassium level: 3.4, 3.3
09/30 Potassium chloride 40 meq PO administered x2
10/01 Potassium level: 3.2, 3.3
10/01 Potassium chloride 40 meq PO administered x2
Based on the above, could you clarify in the progress notes, the appropriate diagnosis, if significant, that supports the above abnormalities and additional evaluation, monitoring and/or treatment rendered:
Hypokalemia
Abnormal lab value insignificant
Other
Use of terms such as suspected, likely, concern for, or probable (associated with a specific diagnosis that is being evaluated, monitored, or treated as if it exists) are acceptable and can be coded in the inpatient setting, when documented at the
time of discharge.
Thank you,
Izabela Weiss RN, BSN
CDI Specialist
Available via [place] text
Please use your independent medical judgment in providing your response.
--- NOTE | 2024-10-03 09:34 | W.PN.HOSP.TC ---
Addendum entered and electronically signed by Sukhwinder Meek MD 10/03/24 14:56:
#Thrombocytopenia
hold Lovenox
Patient pending hospice
Original Note:
Today's Communication/Plan
-
CM for d/c hospice planning
Discussed with brother in details - he knows about patient choices and in agreement
Assessment / Plan
Assessment / Plan
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
conversation with Oncology elected hospice approach. CM involved.
A/P
#DM type 2 with possible DKA on admission
Accuchecks, DM diet, Insulin SS
Basal/Bolus started by DM RN
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
declined further w/u, hospice
#Anxiety/depression d/co
#Bipolar d/o
cont home meds
#Constipation
laxatives
#Hyponatremia
improved
DVT ppx lovenox
DNR/DNI
I have spent at least 37min reviewing chart, test results, communication with family and direct patient care
Anticipated Discharge: Within 24 hours
Subjective/Interval History
-
Date of Service: October 03, 2024
Objective Data
-
Labs:
Laboratory Results
10/03/24
05:28
WBC 4.0 L
Hgb 14.2
Hct 39.9
Plt Count 92 L D
Sodium 129 L
Potassium 4.0
Chloride 93 L
Carbon Dioxide 32 H
BUN 11
Creatinine 0.3 L
Glucose 223 H
Calcium 8.6
Vital Signs:
Vital Signs
Temp Pulse Resp BP Pulse Ox
97.8 F 82 17 133/68 96
10/03/24 07:38 10/03/24 07:38 10/03/24 07:38 10/03/24 07:38 10/03/24 07:38
I&O
10/02/24 10/03/24 10/04/24
06:59 06:59 06:59
Intake Total 480 / 480 400 / 400
Output Total 400 / 400 400 / 400
Balance 80 / 80 0 / 0
Review of Systems
-
History Source: Patient
All other systems: Reviewed and negative
Abdomen/GI: Reports Constipated
Physical Exam
-
General: No Apparent Distress
HEENT: Normocephalic
GI: Soft, Nontender and Nondistended
Neuro: Awake, Alert, Oriented and AO x 3
Psych: Calm
[2024-10-03] MEDS: LANTUS 0.03 UNITS SC (10:06)
[2024-10-03 11:36] LABS: Glucose - Point of Care 280 mg/dl (70-99)
[2024-10-03] MEDS: NOVOLOG FLEXPEN-LOW RESISTANCE 3 UNITS SC (12:27)
[2024-10-03] MEDS: NOVOLOG FLEXPEN 6 UNITS SC ×2 (12:27→16:22)
[2024-10-03 15:07] VITALS: BP 114/57
[2024-10-03 15:07] LABS: CA 19-9 <2 U/mL (<=35)
[2024-10-03 15:55] VITALS: BP 115/61; BP 91/59; PULSE 82; PULSE 85; PULSE 99; O2SAT 93; O2SAT 94
[2024-10-03 16:19] LABS: Glucose - Point of Care 203 mg/dl (70-99)
--- NOTE | 2024-10-03 16:22 | CM ---
Spoke with pt and her brother Navdeep [phone] in room.
Reviewed SNF and PT OT .
Pt agreed she would like to try SNF at [facility] or [facility] .
Referral placed.
She is not pursuing hospice at this time.
PLAN To SNf after located
[2024-10-03 16:36] LABS: Glucose - Point of Care 175 mg/dl (70-99)
[2024-10-03 18:48] LABS: Hepatitis C Antibody Negative (Negative)
[2024-10-03 21:33] LABS: Glucose - Point of Care 138 mg/dl (70-99)
[2024-10-03] MEDS: ZOLOFT 50 MG PO (21:40)
[2024-10-03] MEDS: RISPERDAL 2 MG PO (21:40)
[2024-10-03] MEDS: LIPITOR 40 MG PO (21:40)
[2024-10-03] MEDS: TOPROL XL 50 MG PO (21:40)
[2024-10-03] MEDS: DESYREL 50 MG PO (21:40)
[2024-10-03] MEDS: RISPERDAL 0.5 MG PO (21:41)
[2024-10-03] MEDS: DEPAKOTE ER (24 HR RELEASE) 750 MG PO (21:42)
[2024-10-03 23:10] VITALS: BP 123/64
[2024-10-04 06:00] VITALS: BMI 15.7
[2024-10-04 07:20] VITALS: BP 140/66
[2024-10-04 07:38] LABS: Glucose - Point of Care 231 mg/dl (70-99)
--- NOTE | 2024-10-04 07:54 | PN.DE.MGMTRT ---
Insulin Management
- -
10/04/2024: Diabetes Management Consult Follow up
Patient admitted with fatigue, SOB, and 30 pound weight loss. PMH: HTN, bipolar disorder and T2DM. Blood work showed hyperglycemia with an anion gap acidosis, consistent with DKA, A1c of 11.9%. Because of abdominal pain and weight loss, she
underwent CT scans of the abdomen and pelvis which showed a mass in the head of the pancreas and several hepatic lesions most consistent with metastases. Per chart review, pt does not want biopsy, nor does she want treatment or any heroic measures.
She has elected to be DNR/DNI possible discharge on hospice or SNF setting.
Pt awake, alert, oriented, sitting up in bed, eating breakfast, offers no complaints, able to discuss diabetes mgt.
Discussed with pt likelihood of hypoglycemia in setting of poor appetite and poor oral intake, states she understands and would like to continue with insulin therapy for now.
Premeal glucose range improved to 175 pre dinner with increase novolog to 6 units AC. FBG 231 this AM. First increased Lantus dose 10 units to start this AM.
Continue NovoLog 6 units AC with low corrective insulin. STOP Actos and Rybelsus indefinitely
Will follow
Discussed with pt and Nurse.
Diabetes History
- -
Type of Diabetes: 2 requiring insulin
Pre-Admission Diabetes Regimen
Lab Results
Hemoglobin A1c Cancelled 09/30/24 11:32
Insulin Pump Settings
IP Diabetes Regimen
10/03/24 10/03/24 10/03/24
11:35 16:17 16:34
POC Glucose 280 H 203 H 175 H
10/03/24 10/04/24
21:32 07:36
POC Glucose 138 H 231 H
Meal type: Lunch
Meal type: Breakfast
Amount consumed: 100%
Amount consumed: 100%
Patient Education
[2024-10-04 08:06] LABS: % Basophils 0.2 % (0-2); % Eosinophils 0.7 % (0-6); % Immature Granulocytes 0.2 % (0-0.5); % Lymphocytes 14.6 % (20.5-51.1); % Monocytes 10.1 % (1.7-9.3); % Neutrophils 74.2 % (42.2-75.2); Absolute Lymphocytes 0.6 10^3/uL (1.2-3.4); Absolute Monocytes 0.4 10^3/uL (0.1-0.6); Absolute Neutrophils 3.1 10^3/uL (1.4-6.5); Hematocrit 40.3 % (37.0-47.0); Hemoglobin 14.3 g/dL (12.0-16.0); Mean Corp Hgb Conc. 35.5 g/dL (33.0-37.0); Mean Corpuscular Hgb 32.4 pg (27.0-31.0); Mean Corpuscular Volume 91.2 fL (81.0-99.0); Mean Platelet Volume 9.3 fL (7.4-10.4); Nucleated Red Blood Cells % 0 %; Platelet Count 95 10^3/uL (130-400); Red Blood Cell Count 4.42 10^6/uL (4.20-5.40); Red Cell Dist. Width 14.1 % (11.5-14.5); White Blood Cell Count 4.2 10^3/uL (4.8-10.8)
[2024-10-04 08:39] LABS: Blood Urea Nitrogen 15 mg/dl (7-17); Calcium 8.4 mg/dl (8.4-10.2); Carbon Dioxide 33 mmol/L (22-30); Chloride 92 mmol/L (98-107); Estimated Creatinine Clearance 55 ml/min; Glucose 242 mg/dl (70-99); Sodium 131 mmol/L (135-145); eGFR > 60.00
[2024-10-04] MEDS: MIRALAX 17 GRAMS PO (08:52)
[2024-10-04] MEDS: LANTUS 0.1 UNITS SC (08:52)
[2024-10-04] MEDS: NOVOLOG FLEXPEN-LOW RESISTANCE 2 UNITS SC (08:53)
[2024-10-04] MEDS: NOVOLOG FLEXPEN 6 UNITS SC ×3 (08:54→16:31)
--- NOTE | 2024-10-04 10:20 | CM ---
Addendum entered by Lindsay Nguyen 10/04/24 11:23:
CM spoke with brother, Navdeep, via phone; explained [facility] request for submission of Financial Application; and per his request, e-mailed the form to him at [email or web address]
Brother stated he does not have Power of Senior Research Engineer; the patient will need to sign the financial application before it is submitted
Copy of blank financial application also given to patient
Addendum entered by Lindsay Nguyen 10/04/24 11:07:
Met with patient; she is agreeable to SNF placement @ [facility] at this time
Explained that facility requested submission of financial application. Patient gave approval to speak with her brother via phone
Original Note:
Received a call from [facility]; SNF referral accepted; bed may be available tomorrow. Attending notified
--- NOTE | 2024-10-04 10:36 | W.PN.HOSP.TC ---
Today's Communication/Plan
-
follow plt, HITAb, recall hematology
Assessment / Plan
Assessment / Plan
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
conversation with Oncology elected not to continue with further workup. Meanwhile developed thrombocytopenia
A/P
#DM type 2 with possible DKA on admission
Accuchecks, DM diet, Insulin SS
Basal/Bolus started by DM RN
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
declined further w/u, patient will seek hospice options upon discharge
#Mild leukopenia - chronic since at least 2013
#mild thrombocytopenia
stable
Stop lovenox
check LE US for DVT
recall hematology
HIT Ab sent
#Anxiety/depression d/co
#Bipolar d/o
cont home meds
#Constipation
resolved
laxatives
#Hyponatremia
improved
DVT ppx SCDs
DNR/DNI
I have spent at least 37min reviewing chart, test results, communication with family and direct patient care
Anticipated Discharge: 24 - 48 hours
Subjective/Interval History
-
Date of Service: October 04, 2024
Objective Data
-
Labs:
Laboratory Results
10/04/24
07:49
WBC 4.2 L
Hgb 14.3
Hct 40.3
Plt Count 95 L
Sodium 131 L
Potassium 4.0
Chloride 92 L
Carbon Dioxide 33 H
BUN 15
Creatinine 0.4 L
Glucose 242 H
Calcium 8.4
Vital Signs:
Vital Signs
Temp Pulse Resp BP Pulse Ox
97.6 F 83 17 140/66 98
10/04/24 07:20 10/04/24 07:20 10/04/24 07:20 10/04/24 07:20 10/04/24 07:20
I&O
10/03/24 10/04/24 10/05/24
06:59 06:59 06:59
Intake Total 400 / 400 1440 / 1440
Output Total 400 / 400
Balance 0 / 0 1440 / 1440
Review of Systems
-
History Source: Patient
All other systems: Reviewed and negative
Physical Exam
-
General: Well Developed
HEENT: Normocephalic
Respiratory: Clear to Auscultation
GI: Soft, Nontender and Nondistended
Neuro: Awake, Alert, Oriented and AO x 3
Psych: Calm
[2024-10-04 11:32] LABS: Glucose - Point of Care 172 mg/dl (70-99)
[2024-10-04] MEDS: NOVOLOG FLEXPEN-LOW RESISTANCE 1 UNITS SC (12:07)
[2024-10-04 15:22] VITALS: BP 121/63
[2024-10-04 16:30] LABS: Glucose - Point of Care 106 mg/dl (70-99)
[2024-10-04] MEDS: NOVOLOG FLEXPEN-LOW RESISTANCE SC (16:31)
[2024-10-04] MEDS: TYLENOL 650 MG PO (21:13)
[2024-10-04] MEDS: DESYREL 50 MG PO (21:13)
[2024-10-04] MEDS: DEPAKOTE ER (24 HR RELEASE) 750 MG PO (21:13)
[2024-10-04] MEDS: LIPITOR 40 MG PO (21:13)
[2024-10-04] MEDS: RISPERDAL 0.5 MG PO (21:13)
[2024-10-04] MEDS: ZOLOFT 50 MG PO (21:13)
[2024-10-04] MEDS: RISPERDAL 2 MG PO (21:13)
[2024-10-04] MEDS: TOPROL XL PO (21:14)
[2024-10-04 21:51] LABS: Glucose - Point of Care 211 mg/dl (70-99)
[2024-10-04 23:25] VITALS: BP 118/64
--- NOTE | 2024-10-05 02:18 | DOWNTIME ---
There was a [employer] Downtime on 10/05/2024 from 0100 to 10/05/2023 at 0205 . Downtime documentation of patient's care, including medication administrations, has been reconciled in the electronic record per guidelines. Refer to the
patient's paper chart under the miscellaneous tab to see printed paper medication records and downtime forms.
[2024-10-05 05:51] LABS: % Basophils 0.3 % (0-2); % Eosinophils 2.8 % (0-6); % Immature Granulocytes 0.6 % (0-0.5); % Lymphocytes 22.9 % (20.5-51.1); % Neutrophils 59.4 % (42.2-75.2); Absolute Eosinophils 0.1 10^3/uL (0-0.7); Absolute Lymphocytes 0.8 10^3/uL (1.2-3.4); Absolute Monocytes 0.5 10^3/uL (0.1-0.6); Absolute Neutrophils 2.2 10^3/uL (1.4-6.5); Hematocrit 39.7 % (37.0-47.0); Hemoglobin 13.7 g/dL (12.0-16.0); Mean Corp Hgb Conc. 34.5 g/dL (33.0-37.0); Mean Corpuscular Hgb 31.9 pg (27.0-31.0); Mean Corpuscular Volume 92.5 fL (81.0-99.0); Mean Platelet Volume 9.4 fL (7.4-10.4); Nucleated Red Blood Cells % 0 %; Platelet Count 100 10^3/uL (130-400); Red Blood Cell Count 4.29 10^6/uL (4.20-5.40); Red Cell Dist. Width 14.2 % (11.5-14.5); White Blood Cell Count 3.6 10^3/uL (4.8-10.8)
[2024-10-05 06:00] VITALS: BMI 15.5
--- NOTE | 2024-10-05 07:10 | PTCARENOTE ---
PCT assisted pt to BSC. PCT informed this RN and nightshift RN that patient is increasingly tremulous and out of it. This RN and nightshift RN assessed pt at bedside. Pt staring blankly, shaking and unable to speak a full sentence. After
approximately 1 minute, tremors decreased and pt speaking in full sentences. made aware, new orders provided. Labs obtained, ECG obtained, vital signs obtained. Pt sent to CT and XR. Will cont to monitor.
[2024-10-05 07:42] VITALS: BP 127/67
[2024-10-05 07:56] LABS: Blood Urea Nitrogen 16 mg/dl (7-17); Calcium 8.5 mg/dl (8.4-10.2); Carbon Dioxide 30 mmol/L (22-30); Chloride 93 mmol/L (98-107); Creatine Phosphokinase 36 U/L (30-135); Estimated Creatinine Clearance 55 ml/min; Glucose 246 mg/dl (70-99); Lactic Acid 1.3 mmol/L (0.7-2.0); Magnesium 1.9 mg/dl (1.6-2.3); Potassium 3.4 mmol/L (3.5-5.1); Sodium 130 mmol/L (135-145); eGFR > 60.00
[2024-10-05 08:23] LABS: Glucose - Point of Care 233 mg/dl (70-99)
[2024-10-05 08:28] LABS: Urine Albumin Negative (Neg - Trace); Urine Bilirubin Negative (Negative); Urine Character Clear (Clear); Urine Color Yellow; Urine Glucose 3+ (Negative); Urine Ketone 2+ (Negative); Urine Leukocyte 2+ (Negative); Urine Nitrite Negative (Negative); Urine Occult Blood Negative (Negative); Urine Urobilinogen Negative (Neg - 1+)
[2024-10-05] MEDS: NOVOLOG FLEXPEN-LOW RESISTANCE 2 UNITS SC ×2 (08:39→18:01)
[2024-10-05] MEDS: NOVOLOG FLEXPEN 6 UNITS SC ×2 (08:39→13:21)
[2024-10-05] MEDS: MIRALAX 17 GRAMS PO (08:40)
[2024-10-05] MEDS: LANTUS 0.1 UNITS SC (08:41)
[2024-10-05 08:57] LABS: COVID-19 Antigen Negative (Negative)
[2024-10-05 09:08] LABS: Urine Mucus Moderate
[2024-10-05 09:09] LABS: Urine Amorphous Seen
[2024-10-05 09:11] LABS: Urine Red Blood Cell 0-2 /HPF (0-2); Urine White Cell 30-40 /HPF (0-5)
[2024-10-05 09:13] LABS: Urine Urothelial Cell 26-30 /LPF (FEW)
--- NOTE | 2024-10-05 09:49 | PN.DE.MGMTRT ---
Insulin Management
- -
10/05/2024: Diabetes Management Consult Follow up
Patient admitted with fatigue, SOB, and 30 pound weight loss. PMH: HTN, bipolar disorder and T2DM. Blood work showed hyperglycemia with an anion gap acidosis, consistent with DKA, A1c of 11.9%. Because of abdominal pain and weight loss, she
underwent CT scans of the abdomen and pelvis which showed a mass in the head of the pancreas and several hepatic lesions most consistent with metastases. Per chart review, pt does not want biopsy, nor does she want treatment or any heroic measures.
She has elected to be DNR/DNI possible discharge on hospice or SNF setting.
Pt is off the unit for testing.
Premeal glucose range improved to 175 pre dinner with increase novolog to 6 units AC. FBG 233 this AM.
Will continue Lantus 10 units in AM with NovoLog 6 units AC with low corrective insulin. STOP Actos and Rybelsus indefinitely
Will follow
Discussed with pt and Nurse.
Diabetes History
- -
Type of Diabetes: 2 requiring insulin
Pre-Admission Diabetes Regimen
10/05/24
07:34
Creatinine 0.4 L
Lab Results
Hemoglobin A1c Cancelled 09/30/24 11:32
Insulin Pump Settings
IP Diabetes Regimen
10/04/24 10/04/24 10/04/24
11:31 16:28 21:50
Glucose
POC Glucose 172 H 106 H 211 H
10/05/24 10/05/24
07:34 08:21
Glucose 246 H
POC Glucose 233 H
Meal type: Lunch
Meal type: Breakfast
Amount consumed: 100%
Amount consumed: 100%
Patient Education
[2024-10-05] MEDS: STERILE WATER FOR INJECTION 10 ML IV (10:57)
[2024-10-05] MEDS: ROCEPHIN 1000 MG IV (10:59)
--- NOTE | 2024-10-05 11:16 | EEG.RPT ---
Electroencephalogram Report
Recording
Date of EE10/05/24
Type of EEG: Routine
Length of EEG recordin minutes
Done with Video Recording: Yes
Patient Status: Inpatient
Recording Conditions: Awake and Drowsy
Hyperventilation Performed: No
Photic Stimulation Performed: Yes
Report
LESS THAN 1 HOUR EEG INTERPRETATION:
Unremarkable EEG for age
CLINICAL CORRELATION:
A normal EEG does not rule out a diagnosis of epilepsy. If clinical suspicion for seizure persists, a prolonged recording may be warranted.
Clinical correlation is advised.
METHODS:
A 21 channel digitized electroencephalogram (EEG) was performed using the 10/20 international system of electrode placement and one-lead of ECG recorded. The Social IQ (Social Influence Quotient) quantitative EEG system was utilized.
ELECTROENCEPHALOGRAPHER IMPRESSION(S):
Quality of study
Good
Background
There was an unremarkable anterior-posterior voltage gradient of alpha frequency.
With eye opening the background activity changed to a low voltage mixture of frequencies.
There were no significant asymmetries of background activity noted.
Sleep
Drowsiness present
Photic Stimulation
No activation
ECG
Normal sinus rhythm
--- NOTE | 2024-10-05 11:20 | WOUNDNOTE ---
[facility] RN note: Patient seen during prevention rounds with call center operations manager Vijaya and RN Educator Clotilde. Patient admitted with 'stage 1' sacral pressure injury. Sacral bony prominence very prominent. She is extremely thin. Patient has a sacral linear
shaped red/purple ecchymotic area, suspect will open to a stage 2. Silicone border foam changed using a sacral shaped silicone border foam. Protective foam applied to heels. Patient confirmed sacral skin appearance is not new since admission.
Patient ate a good breakfast breakfast as per CITLALY Dominique. She is on a [employer] air bed. Air chair cushion given. Patient instructed importance of lying on her side at a 30 degree turn to off load her sacrum. She can turn self and gets out of bed to BS
commode with assistance. CITLALY Lilly and Clotilde assisted patient to bedside commode with nurse call pro within reach. CITLALY Dominique updated.
--- NOTE | 2024-10-05 11:20 | WOUNDNOTE ---
HEELS (blanchable mild red)
--- NOTE | 2024-10-05 11:20 | WOUNDNOTE ---
[facility] RN note: Patient seen during prevention rounds with administration intern Vijaya and RN Educator Clotilde. Patient admitted with 'stage 1' sacral pressure injury. Sacral bony prominence very prominent. She is extremely thin. Patient has a sacral linear
shaped red/purple ecchymotic area, suspect will open to a stage 2. Silicone border foam changed using a sacral shaped silicone border foam. Protective foam applied to heels. Patient confirmed sacral skin appearance is not new since admission.
Patient ate a good breakfast breakfast as per CITLALY Dominique. She is on a [employer] air bed. Air chair cushion given. Patient instructed importance of lying on her side at a 30 degree turn to off load her sacrum. She can turn self and gets out of bed to BS
commode with assistance. CITLALY Lilly and Clotilde assisted patient to bedside commode with nurse call pro within reach. CITLALY Dominique updated. Patient at high risk for additional or worsening pressure injuries d/t overall medical condition, cachexia.
[2024-10-05 11:25] VITALS: BP 118/64
--- NOTE | 2024-10-05 11:40 | W.PN.HOSP.TC ---
Today's Communication/Plan
-
replete potassium
start Rocephin
Assessment / Plan
Assessment / Plan
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
conversation with Oncology elected not to continue with further workup. Meanwhile developed thrombocytopenia and had syncopal event, probably vaso-vagal with UTI
A/P
#DM type 2 with possible DKA on admission
Accuchecks, DM diet, Insulin SS
Basal/Bolus started by DM RN
#Syncope
on bedside commode in AM 10/05/[address] head unremarkable
EEG
Echo
Telemetry without clinically significant arrhythmia
UA positive for infection
#UTI
start Rocephin pending Ucx
Cr WNL
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
declined further w/u, patient will seek hospice options upon discharge
#Mild leukopenia - chronic since at least 2013
#mild thrombocytopenia
stable
Stop lovenox
LE US neg for DVT
recall hematology -messaged on 10/04/24
HIT Ab sent
#Anxiety/depression d/co
#Bipolar d/o
cont home meds
Valproic acid level not elevated
#Constipation
resolved
laxatives
#Hyponatremia
improved
DVT ppx SCDs
DNR/DNI
I have spent at least 37min reviewing chart, test results, communication with family and direct patient care
Anticipated Discharge: > 48 hours
Subjective/Interval History
-
Date of Service: October 05, 2024
Objective Data
-
Labs:
Laboratory Results
10/05/24 10/05/24
05:26 07:34
WBC 3.6 L
Hgb 13.7
Hct 39.7
Plt Count 100 L
Sodium 130 L
Potassium 3.4 L
Chloride 93 L
Carbon Dioxide 30
BUN 16
Creatinine 0.4 L
Glucose 246 H
Calcium 8.5
Vital Signs:
Vital Signs
Temp Pulse Resp BP Pulse Ox
98.5 F 100 18 118/64 97
10/05/24 11:25 10/05/24 11:25 10/05/24 11:25 10/05/24 11:25 10/05/24 11:25
I&O
10/04/24 10/05/24 10/06/24
06:59 06:59 06:59
Intake Total 1440 / 1440 720 / 720
Balance 1440 / 1440 720 / 720
Review of Systems
-
History Source: Patient
All other systems: Reviewed and negative
Physical Exam
-
General: No Apparent Distress
HEENT: Normocephalic
Cardiac: Regular Rhythm
GI: Soft, Nontender and Nondistended
Neuro: Awake, Alert, Oriented and AO x 3
Psych: Calm
[2024-10-05 11:43] LABS: Glucose - Point of Care 305 mg/dl (70-99)
[2024-10-05 12:38] VITALS: BP 113/61; PULSE 93
[2024-10-05] MEDS: KCL 40 MEQ PO ×2 (13:19→20:03)
[2024-10-05] MEDS: NOVOLOG FLEXPEN-LOW RESISTANCE 4 UNITS SC (13:20)
--- NOTE | 2024-10-05 14:35 | W.PN.UPDATE ---
Update Note
Progress Note Update
HIT Ab neg -most likely reactive thrombocytopenia with UTI
start DVT ppx - will use fondaparinux for precaution
--- NOTE | 2024-10-05 14:44 | CM ---
Addendum entered by Elizabeth Montiel RN 10/05/24 16:19:
Will need air mattress at [facility].
Original Note:
PT OT recommended SNF.
Spoke with brother Navdeep [phone] he is working on getting POA and submit financial forms.
Spoke with Jacinta at [facility] will need to get back to for bed tomorrow.
PLAN To [facility] after accepted.
[2024-10-05 15:02] VITALS: BP 127/66
--- NOTE | 2024-10-05 15:28 | WOUNDNOTE ---
WOC RN note: Updated Dr. Meek re: sacral appearance, local care approved. Nicolas Montiel re: air mattress recommended at SNF.
[2024-10-05 16:47] LABS: Glucose - Point of Care 206 mg/dl (70-99)
[2024-10-05] MEDS: NOVOLOG FLEXPEN 10 UNITS SC (18:02)
[2024-10-05] MEDS: ARIXTRA 2.5 MG SC (18:02)
[2024-10-05 19:20] VITALS: BP 138/80
[2024-10-05 22:03] LABS: Glucose - Point of Care 137 mg/dl (70-99)
[2024-10-05] MEDS: ZOLOFT 50 MG PO (22:40)
[2024-10-05] MEDS: LIPITOR 40 MG PO (22:40)
[2024-10-05] MEDS: RISPERDAL 2 MG PO (22:40)
[2024-10-05] MEDS: DESYREL 50 MG PO (22:40)
[2024-10-05] MEDS: TOPROL XL 50 MG PO (22:40)
[2024-10-05] MEDS: RISPERDAL 0.5 MG PO (22:47)
[2024-10-05] MEDS: DEPAKOTE ER (24 HR RELEASE) 750 MG PO (22:47)
[2024-10-05 23:10] VITALS: BP 144/79
[2024-10-06 03:35] VITALS: BP 127/64
[2024-10-06 06:00] VITALS: BMI 16.1
[2024-10-06 06:06] LABS: % Basophils 0.2 % (0-2); % Eosinophils 1.7 % (0-6); % Immature Granulocytes 0.5 % (0-0.5); % Lymphocytes 13.8 % (20.5-51.1); % Monocytes 15.3 % (1.7-9.3); % Neutrophils 68.5 % (42.2-75.2); Absolute Eosinophils 0.1 10^3/uL (0-0.7); Absolute Lymphocytes 0.6 10^3/uL (1.2-3.4); Absolute Monocytes 0.6 10^3/uL (0.1-0.6); Absolute Neutrophils 2.8 10^3/uL (1.4-6.5); Hematocrit 37.7 % (37.0-47.0); Hemoglobin 12.9 g/dL (12.0-16.0); Mean Corp Hgb Conc. 34.2 g/dL (33.0-37.0); Mean Corpuscular Hgb 32.2 pg (27.0-31.0); Mean Platelet Volume 9.2 fL (7.4-10.4); Nucleated Red Blood Cells % 0 %; Platelet Count 104 10^3/uL (130-400); Red Blood Cell Count 4.01 10^6/uL (4.20-5.40); Red Cell Dist. Width 14.3 % (11.5-14.5); White Blood Cell Count 4.1 10^3/uL (4.8-10.8)
[2024-10-06 06:35] LABS: ALT (SGPT) 95 U/L (0-35); AST (SGOT) 102 U/L (14-36); Albumin 2.8 g/dl (3.5-5.0); Alkaline Phosphatase 115 U/L (38-126); Blood Urea Nitrogen 14 mg/dl (7-17); Calcium 8.4 mg/dl (8.4-10.2); Carbon Dioxide 32 mmol/L (22-30); Chloride 96 mmol/L (98-107); Estimated Creatinine Clearance 57 ml/min; Glucose 214 mg/dl (70-99); Potassium 4.3 mmol/L (3.5-5.1); Sodium 133 mmol/L (135-145); Total Bilirubin 0.3 mg/dl (0.2-1.3); Total Protein 4.9 g/dl (6.3-8.2); eGFR > 60.00
[2024-10-06 07:05] VITALS: BP 124/62
[2024-10-06 08:18] LABS: Glucose - Point of Care 236 mg/dl (70-99)
[2024-10-06] MEDS: LANTUS 0.14 UNITS SC (08:54)
[2024-10-06] MEDS: MIRALAX 17 GRAMS PO (08:54)
--- NOTE | 2024-10-06 08:54 | PN.DE.MGMTRT ---
Insulin Management
- -
10/06/2024: Diabetes Management Follow up
Patient admitted with fatigue, SOB, and 30 pound weight loss. PMH: HTN, bipolar disorder and T2DM. Blood work showed hyperglycemia with an anion gap acidosis, consistent with DKA, A1c of 11.9%. Because of abdominal pain and weight loss, she
underwent CT scans of the abdomen and pelvis which showed a mass in the head of the pancreas and several hepatic lesions most consistent with metastases. Per chart review, pt does not want biopsy, nor does she want treatment or any heroic measures.
She has elected to be DNR/DNI possible discharge on hospice or SNF setting.
Pt awake, alert, sitting up in bed, offers no complaints, able to discuss diabetes plan
10/05 Premeal glucose range 206 to 305, requiring additional corrective insulin with meals
Will increase AC NovoLog to 12 units. Cont low corrective insulin
FBG 214(V), 236 POC, Ronaldo increase Lantus to 16 units
STOP Actos and Rybelsus indefinitely. Will cont to follow and make further insulin dose adjustments if needed
Discussed with pt and Nurse.
Diabetes History
- -
Type of Diabetes: 2
Pre-Admission Diabetes Regimen
10/06/24
05:22
Creatinine 0.3 L
Lab Results
Hemoglobin A1c Cancelled 09/30/24 11:32
Insulin Pump Settings
IP Diabetes Regimen
10/05/24 10/05/24 10/05/24
11:41 16:46 22:02
Glucose
POC Glucose 305 H 206 H 137 H
10/06/24 10/06/24
05:22 08:17
Glucose 214 H
POC Glucose 236 H
Meal type: Lunch
Meal type: Breakfast
Amount consumed: 100%
Amount consumed: 100%
Patient Education
[2024-10-06] MEDS: NOVOLOG FLEXPEN 10 UNITS SC (08:55)
[2024-10-06] MEDS: NOVOLOG FLEXPEN-LOW RESISTANCE 2 UNITS SC (08:55)
[2024-10-06] MEDS: STERILE WATER FOR INJECTION 10 ML IV (10:44)
[2024-10-06] MEDS: ROCEPHIN 1000 MG IV (10:44)
[2024-10-06] MEDS: FLUSH (NSS) 2 FLUSH IV (10:45)
[2024-10-06 11:05] VITALS: BP 127/66
--- NOTE | 2024-10-06 11:27 | W.PN.HOSP.TC ---
Today's Communication/Plan
-
pending Ucx and then d/c, but still needs rehab placement
Assessment / Plan
Assessment / Plan
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
conversation with Oncology elected not to continue with further workup. Meanwhile developed thrombocytopenia and had syncopal event, probably vaso-vagal with UTI. CM working with brother on paperwork for rehab, which can delay d/c
A/P
#DM type 2 with possible DKA on admission
Accuchecks, DM diet, Insulin SS
Basal/Bolus started by DM RN - will need insulin upon d/c
#Syncope
on bedside commode in AM 10/05/[address] head unremarkable
EEG
Echo
Telemetry without clinically significant arrhythmia
UA positive for infection
#UTI
start Rocephin pending Ucx
Cr WNL
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
declined further w/u, patient will seek hospice options upon discharge
#Mild leukopenia - chronic since at least 2013
#mild thrombocytopenia
stable
HIT Ab neg
LE US neg for DVT
#Anxiety/depression d/co
#Bipolar d/o
cont home meds
Valproic acid level not elevated
#Constipation
resolved
laxatives
#Hyponatremia
improved
DVT ppx SCDs
DNR/DNI
I have spent at least 37min reviewing chart, test results, communication with family and direct patient care
Anticipated Discharge: Within 24 hours
Subjective/Interval History
-
Date of Service: October 06, 2024
Objective Data
-
Labs:
Laboratory Results
10/06/24
05:22
WBC 4.1 L
Hgb 12.9
Hct 37.7
Plt Count 104 L
Sodium 133 L
Potassium 4.3 D
Chloride 96 L
Carbon Dioxide 32 H
BUN 14
Creatinine 0.3 L
Glucose 214 H
Calcium 8.4
Total Bilirubin 0.3
AST 102 H
ALT 95 H
Alkaline Phosphatase 115
Vital Signs:
Vital Signs
Temp Pulse Resp BP Pulse Ox
98.2 F 85 18 127/66 98
10/06/24 11:05 10/06/24 11:05 10/06/24 11:05 10/06/24 11:05 10/06/24 11:05
I&O
10/05/24 10/06/24 10/07/24
06:59 06:59 06:59
Intake Total 720 / 720 1140 / 1140
Balance 720 / 720 1140 / 1140
Review of Systems
-
History Source: Patient
All other systems: Reviewed and negative
Physical Exam
-
General: No Apparent Distress
HEENT: Normocephalic and Atraumatic
GI: Soft
Genito-urinary: No Costovertebral Tender
Musculoskeletal: No Clubbing, No Cyanosis and No Edema
Psych: Calm
[2024-10-06 11:51] LABS: Glucose - Point of Care 275 mg/dl (70-99)
[2024-10-06] MEDS: NOVOLOG FLEXPEN-LOW RESISTANCE 3 UNITS SC (12:07)
[2024-10-06] MEDS: NOVOLOG FLEXPEN 12 UNITS SC ×2 (12:08→16:52)
[2024-10-06 15:05] VITALS: BP 121/57
[2024-10-06 16:43] LABS: Glucose - Point of Care 139 mg/dl (70-99)
[2024-10-06] MEDS: NOVOLOG FLEXPEN-LOW RESISTANCE 1 UNITS SC (16:51)
[2024-10-06] MEDS: ARIXTRA 2.5 MG SC (16:53)
[2024-10-06 19:55] VITALS: BP 122/59
[2024-10-06] MEDS: TOPROL XL 50 MG PO (21:07)
[2024-10-06] MEDS: DEPAKOTE ER (24 HR RELEASE) 750 MG PO (21:07)
[2024-10-06] MEDS: LIPITOR 40 MG PO (21:07)
[2024-10-06] MEDS: RISPERDAL 0.5 MG PO (21:07)
[2024-10-06] MEDS: DESYREL 50 MG PO (21:08)
[2024-10-06] MEDS: ZOLOFT 50 MG PO (21:08)
[2024-10-06] MEDS: RISPERDAL 2 MG PO (21:08)
[2024-10-06 21:13] LABS: Glucose - Point of Care 194 mg/dl (70-99)
[2024-10-06 23:00] VITALS: BP 138/66
[2024-10-07 03:40] VITALS: BP 127/62
[2024-10-07 06:00] VITALS: BMI 16.9
[2024-10-07 06:30] LABS: % Basophils 0.5 % (0-2); % Eosinophils 1.9 % (0-6); % Immature Granulocytes 0.5 % (0-0.5); % Lymphocytes 15.2 % (20.5-51.1); % Monocytes 15.7 % (1.7-9.3); % Neutrophils 66.2 % (42.2-75.2); Absolute Eosinophils 0.1 10^3/uL (0-0.7); Absolute Lymphocytes 0.6 10^3/uL (1.2-3.4); Absolute Monocytes 0.7 10^3/uL (0.1-0.6); Absolute Neutrophils 2.7 10^3/uL (1.4-6.5); Hematocrit 37.7 % (37.0-47.0); Hemoglobin 12.9 g/dL (12.0-16.0); Mean Corp Hgb Conc. 34.2 g/dL (33.0-37.0); Mean Corpuscular Hgb 32.3 pg (27.0-31.0); Mean Corpuscular Volume 94.3 fL (81.0-99.0); Mean Platelet Volume 8.9 fL (7.4-10.4); Nucleated Red Blood Cells % 0 %; Platelet Count 139 10^3/uL (130-400); Red Cell Dist. Width 14.4 % (11.5-14.5); White Blood Cell Count 4.1 10^3/uL (4.8-10.8)
[2024-10-07 06:31] LABS: ALT (SGPT) 76 U/L (0-35); AST (SGOT) 55 U/L (14-36); Albumin 2.8 g/dl (3.5-5.0); Alkaline Phosphatase 132 U/L (38-126); Blood Urea Nitrogen 14 mg/dl (7-17); Calcium 8.5 mg/dl (8.4-10.2); Carbon Dioxide 31 mmol/L (22-30); Chloride 96 mmol/L (98-107); Estimated Creatinine Clearance 57 ml/min; Glucose 218 mg/dl (70-99); Potassium 4.1 mmol/L (3.5-5.1); Sodium 130 mmol/L (135-145); Total Bilirubin 0.1 mg/dl (0.2-1.3); Total Protein 4.9 g/dl (6.3-8.2); eGFR > 60.00
[2024-10-07 07:29] LABS: Glucose - Point of Care 234 mg/dl (70-99)
--- NOTE | 2024-10-07 07:41 | PN.DE.MGMTRT ---
Insulin Management
- -
10/07/2024: Diabetes Management Follow up
Patient admitted with fatigue, SOB, and 30 pound weight loss. PMH: HTN, bipolar disorder and T2DM. Blood work showed hyperglycemia with an anion gap acidosis, consistent with DKA, A1c of 11.9%. Because of abdominal pain and weight loss, she
underwent CT scans of the abdomen and pelvis which showed a mass in the head of the pancreas and several hepatic lesions most consistent with metastases. Per chart review, pt does not want biopsy, nor does she want treatment or any heroic measures.
She has elected to be DNR/DNI possible discharge on hospice or SNF setting.
Pt awake, alert, sitting up in bed, offers no complaints, able to discuss diabetes plan
10/06 Premeal glucose range 139 to 275, requiring additional corrective insulin with meals
FBG 218(V), 234 POC, Will make no changes to current regimen, cont Lantus to 16 units AC NovoLog to 12 units with low corrective insulin
STOP Actos and Rybelsus indefinitely. Will cont to follow and make further insulin dose adjustments if needed
Discussed with pt and Nurse.
Diabetes History
- -
Type of Diabetes: 2 requiring insulin
Pre-Admission Diabetes Regimen
10/07/24
05:40
Creatinine 0.3 L
Lab Results
Hemoglobin A1c Cancelled 09/30/24 11:32
Insulin Pump Settings
IP Diabetes Regimen
10/06/24 10/06/24 10/06/24
08:17 11:50 16:42
Glucose
POC Glucose 236 H 275 H 139 H
10/06/24 10/07/24 10/07/24
21:12 05:40 07:29
Glucose 218 H
POC Glucose 194 H 234 H
Meal type: Dinner
Meal type: Lunch
Meal type: Breakfast
Amount consumed: 80%
Amount consumed: Patient refused
Amount consumed: 100%
Patient Education
[2024-10-07 07:46] VITALS: BP 119/60
[2024-10-07] MEDS: LANTUS 0.16 UNITS SC (09:01)
[2024-10-07] MEDS: NOVOLOG FLEXPEN-LOW RESISTANCE 2 UNITS SC (09:01)
[2024-10-07] MEDS: NOVOLOG FLEXPEN 12 UNITS SC ×2 (09:01→12:22)
[2024-10-07] MEDS: MIRALAX 17 GRAMS PO (09:05)
--- NOTE | 2024-10-07 10:02 | CM ---
Addendum entered by Elizabeth Montiel RN 10/07/24 10:47:
IMM reviewed with brother Navdeep he agrees with dc.
Jacinta said they can accept pt at [facility].
notified.
Medical nec form completed.
PLAN To [facility]
Original Note:
Spoke with [facility] she said DON has to review referral be for accepting .
Jacinta to call CM back .
Navdeep son is her support person.
[facility]
report [phone]
fax [phone]
PLAN To [facility] when accepted
[2024-10-07] MEDS: STERILE WATER FOR INJECTION 10 ML IV (11:07)
[2024-10-07] MEDS: ROCEPHIN 1000 MG IV (11:07)
--- NOTE | 2024-10-07 11:07 | W.PN.HOSP.TC ---
Today's Communication/Plan
-
dc
Assessment / Plan
Assessment / Plan
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
conversation with Oncology elected not to continue with further workup. Meanwhile developed thrombocytopenia and had syncopal event, probably vaso-vagal with UTI. Ucx grew pansensitive E.coli - reasonable for outpatient cefuroxime. Medically stable
for d/c
A/P
#DM type 2 with possible DKA on admission
Accuchecks, DM diet, Insulin SS
Basal/Bolus started by DM RN - will need insulin upon d/c
#Syncope
on bedside commode in AM 10/05/[address] head unremarkable
EEG
Echo
Telemetry without clinically significant arrhythmia
UA positive for infection
#UTI
start Rocephin pending Ucx
Cr WNL
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
declined further w/u, patient will seek hospice options upon discharge
#Mild leukopenia - chronic since at least 2013
#mild thrombocytopenia
stable
HIT Ab neg
LE US neg for DVT
#Anxiety/depression d/co
#Bipolar d/o
cont home meds
Valproic acid level not elevated
#Constipation
resolved
laxatives
#Hyponatremia
improved
DVT ppx SCDs
DNR/DNI
I have spent at least 37min reviewing chart, test results, communication with family and direct patient care
Anticipated Discharge: Today
Subjective/Interval History
-
Date of Service: October 07, 2024
Objective Data
-
Labs:
Laboratory Results
10/07/24
05:40
WBC 4.1 L
Hgb 12.9
Hct 37.7
Plt Count 139 D
Sodium 130 L
Potassium 4.1
Chloride 96 L
Carbon Dioxide 31 H
BUN 14
Creatinine 0.3 L
Glucose 218 H
Calcium 8.5
Total Bilirubin 0.1 L
AST 55 H
ALT 76 H
Alkaline Phosphatase 132 H
Vital Signs:
Vital Signs
Temp Pulse Resp BP Pulse Ox
97.7 F 75 16 119/60 98
10/07/24 07:46 10/07/24 07:46 10/07/24 07:46 10/07/24 07:46 10/07/24 07:46
I&O
10/06/24 10/07/24 10/08/24
06:59 06:59 06:59
Intake Total 1140 / 1140 1020 / 1020 240 / 240
Balance 1140 / 1140 1020 / 1020 240 / 240
Review of Systems
-
History Source: Patient
All other systems: Reviewed and negative
Physical Exam
-
General: No Apparent Distress
HEENT: Normocephalic
Respiratory: Clear to Auscultation
GI: Soft, Nontender and Nondistended
Neuro: Awake, Alert, Oriented and AO x 3
Psych: Calm
[2024-10-07] MEDS: FLUSH (NSS) 2 FLUSH IV (11:08)
--- NOTE | 2024-10-07 11:14 | W.DCSUMMARY ---
Discharge Summary
Discharge Data
Date of Admission: 09/30/24
Date of Discharge: 10/07/24
-
Pending Results: No
Hospital Course
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
conversation with Oncology elected not to continue with further workup. Meanwhile developed transient thrombocytopenia and had syncopal event, probably vaso-vagal with UTI. Ucx grew pansensitive E.coli - reasonable for outpatient cefuroxime. No
symprtoms of NPH at this time in spite of prominent sulci on CT. Medically stable for d/c
I have spent at least 37min reviewing chart, test results, communication with family and direct patient care
Patient was managed for
#DM type 2 with possible DKA on admission
#Syncope
#UTI
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
#Mild leukopenia - chronic since at least 2013
#mild thrombocytopenia
#Anxiety/depression d/co
#Bipolar d/o
#Constipation
#Hyponatremia
Discharge Plan
-
Patient Disposition: [facility]/SNF
Discharge Diagnosis/Procedures: DKA
Diet: Diabetic, Carb Controlled
Activity: As tolerated
Driving Restrictions: As prior to admission
Activity Restrictions/Additional Instructions:
Wound Care Instructions
Sacrum-clean with saline, apply sacral shaped silicone border foam dressing, change q 3 days and prn loosened dressing.
Air mattress
Elevate heels off bed with pillow/s.
Pressure redistributing chair cushion.
Follow up with wound hearing care professional or at wound care center if needed, call for an appointment.
Referrals:
Ricardo Washington Jr., DO [Family Provider] -
Prescriptions:
New
magnesium hydroxide [Milk of Magnesia] 400 mg/5 mL Suspension
30 ml PO QIDPRN PRN (Reason: constipation) Qty: 3780 0RF
Insulin Glargine Lantus [Lantus] 16 UNITS
Subcutaneous Insulin Syringe [Syringe-Insulin] 0 UNIT
As Directed mls/hr SC DAILY
Ordered By: Sukhwinder Meek MD
Last Taken: 10/07/24 09:01 0.16 mls
cefuroxime axetil 500 mg tablet
500 mg PO Q12H Qty: 14 0RF
Continued
atorvastatin 40 MG tablet
40 mg PO HS
sertraline 50 MG tablet
50 mg PO HS
trazodone 50 mg Tablet
50 mg PO HS
risperidone [Risperdal] 2 mg Tablet
2 mg PO HS
risperidone [Risperdal] 0.5 mg Tablet
0.5 mg PO HS
metoprolol succinate 50 mg Capsule,Sprinkle,Er 24hr
50 mg PO HS
divalproex [Depakote ER] 250 mg tablet extended release 24 hr
750 mg PO HS
Discontinued
pioglitazone 45 mg Tablet
45 mg PO DAILY
Discharge Orders:
Discharge Patient (As Directed); Ordered 10/07/24
Ordered By: Sukhwinder Meek
Discharge Date and Time
Print Language: BULGARIAN
[2024-10-07 11:22] VITALS: BP 121/60; PULSE 84
[2024-10-07 11:32] VITALS: BP 127/70
[2024-10-07 11:39] LABS: Glucose - Point of Care 182 mg/dl (70-99)
[2024-10-07] MEDS: NOVOLOG FLEXPEN-LOW RESISTANCE 1 UNITS SC (12:22)
== END 2024-10-07 13:47 | DRG 435 ==
LOC: 3 WEST ACU 15:45
PROVIDERS: Hospitalist; Nurse Practitioner Family; Physician Assistant Medical; Student in an Organized Health Care Education/Training Program; ADMITTING PHYSICIAN Student in an Organized Health Care Education/Training Program; ATTENDING PHYSICIAN Internal Medicine; EMERGENCY PHYSICIAN Student in an Organized Health Care Education/Training Program; FAMILY PHYSICIAN Family Medicine; OTHER PHYSICIAN Internal Medicine Hematology & Oncology
DX: C25.0 Malignant neoplasm of head of pancreas (principal); E11.10 Type 2 diabetes mellitus with ketoacidosis without coma; E43 Unspecified severe protein-calorie malnutrition; N39.0 Urinary tract infection, site not specified; C78.7 Secondary malignant neoplasm of liver and intrahepatic bile duct; E87.1 Hypo-osmolality and hyponatremia; Z66 Do not resuscitate; Z51.5 Encounter for palliative care; B96.20 Unspecified Escherichia coli [E. coli] as the cause of diseases classified elsewhere; D69.6 Thrombocytopenia, unspecified; I10 Essential (primary) hypertension; F31.9 Bipolar disorder, unspecified; R55 Syncope and collapse; K59.00 Constipation, unspecified; E87.6 Hypokalemia; E78.00 Pure hypercholesterolemia, unspecified; Z96.611 Presence of right artificial shoulder joint; Z79.899 Other long term (current) drug therapy; Z79.84 Long term (current) use of oral hypoglycemic drugs; Z11.52 Encounter for screening for COVID-19
CPT/HCPCS: 70450; 71046; 74177; 80048; 80053; 81003; 81015; 82248; 82550; 82805; 82947; 82962; 83605; 83735; 84484; 85025; 85027; 86022; 86301; 86803; 86850; 86900; 86901; 87077; 87086; 87186; 87502; 87811; 93005; 93970; 95816; 96365; 96366; 96375; 97161; 97167; 97530; 99285; Q9967